=== PATIENT | female | born 1960 | race Two or more races ===

== ENCOUNTER 2017-06-23 19:31 | Emergency (ER) | payer OTHER, MEDICAID ==
[~2017-06-23] VITALS: Ht 162.6 cm; Wt 108.9 kg
[2017-06-23 20:50] LABS: Basophils # (auto) 0.1 uL; Eosinophils # (auto) 0.1 uL; Eosinophils % (auto) 1.3 % (0.0-7.0); Hemoglobin 12.4 g/dL (12.2-16.2)
[2017-06-23 20:52] LABS: Basophils % (auto) 0.9 % (0.0-2.0); Lymphocytes % (auto) 23.9 % (10.0-50.0); Mean Corpuscular Hemoglobin 24.7 pg (28.0-32.0); Mean Corpuscular Hgb Conc. 32.5 g/dL (32.0-36.0); Mean Corpuscular Volume 75.9 fL (80.0-100.0); Monocytes # (auto) 0.8 uL; Monocytes % (auto) 9.5 % (0.0-12.0); Neutrophils # (auto) 5.5 uL; Neutrophils % (auto) 64.4 % (37.0-80.0); Nucleated Red Blood Cells % 0.1 %; Platelet Count (auto) 426 10^3/uL (140-450); Red Blood Cells 5.01 10^6/uL (4.0-5.20); Red Cell Distribution Width 17.9 % (11.8-14.3); White Blood Cell 8.5 10^3/uL (4.4-10.8)
[2017-06-23 21:03] LABS: INR 0.95 (0.9-1.15); Partial Thromboplastin Time 25.7 sec (22.64-33.71); Prothrombin Time 10.3 sec (9.37-12.3)
[2017-06-23 21:23] LABS: Alanine Aminotransferase 19 U/L (13-56); Albumin 4.1 g/dL (3.4-5.0); Alkaline Phosphatase 110 U/L (45-117); Anion Gap 9 (5-15); Aspartate Aminotransferase 21 U/L (15-37); BUN/Creatinine Ratio 11.7; Bilirubin, Total 0.3 mg/dL (0.2-1.0); Blood Urea Nitrogen 11 mg/dL (7-18); Calcium 9.4 mg/dL (8.5-10.1); Carbon Dioxide 23 mmol/L (21-32); Chloride 105 mmol/L (98-107); GFR African American 80 mL/min; GFR Non-African American 66 mL/min; Glucose 121 mg/dL (74-106); Magnesium 2.5 mg/dL (1.6-2.6); Potassium 4.2 mmol/L (3.5-5.1); Sodium 137 mmol/L (136-145); Total Protein 8.6 g/dL (6.4-8.2)
[2017-06-24 00:49] VITALS: BP 133/89
== END 2017-06-24 01:12 | disposition home or self-care (01) ==
LOC: ER 19:31
DX: M54.42 Lumbago with sciatica, left side (principal); M62.838 Other muscle spasm; E11.9 Type 2 diabetes mellitus without complications; G89.29 Other chronic pain
CPT/HCPCS: 36415; 71045; 72131; 80053; 83735; 83880; 84443; 84484; 85025; 85379; 85610; 85730; 93005

== ENCOUNTER 2017-07-26 13:26 | Emergency (ER) | payer OTHER, MEDICAID ==
[~2017-07-26] VITALS: Ht 172.7 cm; Wt 95.3 kg
[2017-07-26 14:30] LABS: Basophils # (auto) 0 uL; Basophils % (auto) 0.9 % (0.0-2.0); Eosinophils # (auto) 0.2 uL; Hematocrit 35.5 % (36.0-46.0); Lymphocytes # (auto) 1.5 uL; Monocytes # (auto) 0.4 uL
[2017-07-26 14:32] LABS: Eosinophils % (auto) 3.7 % (0.0-7.0); Hemoglobin 11.6 g/dL (12.2-16.2); Lymphocytes % (auto) 33.2 % (10.0-50.0); Mean Corpuscular Hemoglobin 24.5 pg (28.0-32.0); Mean Corpuscular Hgb Conc. 32.7 g/dL (32.0-36.0); Mean Corpuscular Volume 74.9 fL (80.0-100.0); Monocytes % (auto) 9.1 % (0.0-12.0); Neutrophils # (auto) 2.4 uL; Neutrophils % (auto) 53.1 % (37.0-80.0); Platelet Count (auto) 341 10^3/uL (140-450); Red Blood Cells 4.74 10^6/uL (4.0-5.20); Red Cell Distribution Width 16.2 % (11.8-14.3); White Blood Cell 4.5 10^3/uL (4.4-10.8)
[2017-07-26 14:53] LABS: Alanine Aminotransferase 29 U/L (13-56); Albumin 3.4 g/dL (3.4-5.0); Alkaline Phosphatase 116 U/L (45-117); Anion Gap 7 (5-15); Aspartate Aminotransferase 21 U/L (15-37); BUN/Creatinine Ratio 12.5; Bilirubin, Total 0.2 mg/dL (0.2-1.0); Blood Urea Nitrogen 8 mg/dL (7-18); Calcium 8.4 mg/dL (8.5-10.1); Carbon Dioxide 23 mmol/L (21-32); Chloride 102 mmol/L (98-107); GFR African American 124 mL/min; GFR Non-African American 102 mL/min; Glucose 96 mg/dL (74-106); Magnesium 2.4 mg/dL (1.6-2.6); Potassium 4.3 mmol/L (3.5-5.1); Sodium 132 mmol/L (136-145); Total Protein 7.1 g/dL (6.4-8.2)
[2017-07-26 17:43] VITALS: BP 148/68
== END 2017-07-26 17:45 | disposition home or self-care (01) ==
LOC: EDBD 13:26 → ER 13:26
DX: G40.909 Epilepsy, unspecified, not intractable, without status epilepticus (principal); R42 Dizziness and giddiness; R53.1 Weakness; E11.9 Type 2 diabetes mellitus without complications; I10 Essential (primary) hypertension; R51 Headache; Z90.49 Acquired absence of other specified parts of digestive tract
CPT/HCPCS: 36415; 70450; 80053; 83735; 84484; 85025; 93005

== ENCOUNTER 2018-09-29 11:52 | Emergency (ER) | payer OTHER, MEDICAID ==
[~2018-09-29] VITALS: Ht 167.6 cm; Wt 99.3 kg
[2018-09-29 12:39] LABS: Basophils # (auto) 0.1 uL; Basophils % (auto) 0.8 % (0.0-2.0); Eosinophils # (auto) 0.1 uL; Mean Corpuscular Hemoglobin 25.9 pg (28.0-32.0); Mean Corpuscular Hgb Conc. 32.8 g/dL (32.0-36.0); Monocytes # (auto) 0.5 uL; White Blood Cell 6.8 10^3/uL (4.4-10.8)
[2018-09-29 12:41] LABS: Hemoglobin 11.1 g/dL (12.2-16.2); Lymphocytes # (auto) 1.1 uL; Lymphocytes % (auto) 16.9 % (10.0-50.0); Monocytes % (auto) 8.1 % (0.0-12.0); Neutrophils % (auto) 73.2 % (37.0-80.0); Platelet Count (auto) 284 10^3/uL (140-450); Red Cell Distribution Width 14.9 % (11.8-14.3)
[2018-09-29 13:02] LABS: Albumin 3.2 g/dL (3.4-5.0); Anion Gap 8 (5-15); Blood Urea Nitrogen 13 mg/dL (7-18); Carbon Dioxide 23 mmol/L (21-32); Chloride 108 mmol/L (98-107); Glucose 101 mg/dL (74-106); Potassium 4.4 mmol/L (3.5-5.1); Sodium 139 mmol/L (136-145)
[2018-09-29 13:07] LABS: Alanine Aminotransferase 87 U/L (13-56); Alkaline Phosphatase 120 U/L (45-117); Aspartate Aminotransferase 229 U/L (15-37); BUN/Creatinine Ratio 16.7; Bilirubin, Total 0.3 mg/dL (0.2-1.0); GFR African American 98 mL/min; GFR Non-African American 81 mL/min; Total Protein 6.7 g/dL (6.4-8.2)
[2018-09-29 18:02] VITALS: BP 119/77
== END 2018-09-29 14:47 | disposition home or self-care (01) ==
LOC: EDSEX 11:52 → EDBD 11:52 → ER 12:08
DX: K59.00 Constipation, unspecified (principal); J44.9 Chronic obstructive pulmonary disease, unspecified; E11.9 Type 2 diabetes mellitus without complications; I10 Essential (primary) hypertension; Z90.49 Acquired absence of other specified parts of digestive tract
CPT/HCPCS: 36415; 74176; 80053; 84484; 85025; 93005

== ENCOUNTER 2021-06-08 09:36 | Inpatient (IN) | payer OTHER, MEDICAID ==
[~2021-06-08] VITALS: Ht 165.1 cm; Wt 111.0 kg
[2021-06-08 10:33] LABS: Basophils # (auto) 0.1 10 ^3/uL (0-0.2); Basophils % (auto) 0.3 % (0.0-2.0); Eosinophils # (auto) 0 10 ^3/uL (0-0.8); Eosinophils % (auto) 0.1 % (0.0-7.0); Hemoglobin 13.2 g/dL (12.2-16.2); Lymphocytes # (auto) 1.6 10 ^3/uL (0.4-5.4)
[2021-06-08 10:35] LABS: Hematocrit 39.9 % (36.0-46.0); Mean Corpuscular Hemoglobin 25.7 pg (28.0-32.0); Monocytes # (auto) 1.2 10 ^3/uL (0-1.3); Monocytes % (auto) 7.6 % (0.0-12.0); Neutrophils # (auto) 13.1 10 ^3/uL (1.6-8.6); Red Blood Cells 5.12 10^6/uL (4.0-5.20); Red Cell Distribution Width 15.1 % (11.8-14.3)
[2021-06-08 10:38] LABS: Urine Bacteria FEW /hpf (None Seen); Urine Blood Negative /uL (Negative); Urine Mucus FEW (None Seen); Urine Specific Gravity 1.017 (1.001-1.035); Urine WBC 20 /hpf (0 - 5)
[2021-06-08 10:43] LABS: Albumin 3.2 g/dL (3.4-5.0); Potassium 3.6 mmol/L (3.5-5.1)
[2021-06-08 10:50] LABS: BUN/Creatinine Ratio 10.7; Bilirubin, Total 0.3 mg/dL (0.2-1.0); Total Protein 8.2 g/dL (6.4-8.2)
[2021-06-08] MEDS ORDERED: SODIUM CHLORIDE 0.9% 500 ML IVB ONE (13:30)
[2021-06-08] MEDS ORDERED: SODIUM CHLORIDE 0.9% 1,000 ML IV ONE (13:30)
[2021-06-08] MEDS ORDERED: IOHEXOL 300 MG/ML 100ML BOTTLE IJ ONE (14:01)
[2021-06-08 14:42] LABS: Magnesium 2.6 mg/dL (1.6-2.6)
[2021-06-08] MEDS ORDERED: cefTRIAXone 1GM/50ML D5W 50 ML IV ONE ×2 (15:00→20:30)
[2021-06-08] MEDS ORDERED: metroNIDAZOLE 500MG/100ML 100 ML IV ONE (15:30)
[2021-06-08] MEDS ORDERED: DEXTROSE (50%) 50ML SYRG IV PRN (15:45)
[2021-06-08] MEDS: SODIUM CHLORIDE 0.9% 1,000 ML IV SCH (16:39)
[2021-06-08 16:51] LABS: INR 1.05 (0.9-1.15); Partial Thromboplastin Time 31.5 sec (23.6-33.0)
[2021-06-08] MEDS: ACCU-CHEK COMFORT CURVE STRIP VI SCH (17:43)
[2021-06-08] MEDS: InsuLIN REG 1unit/0.01ml Soln (100units/ml) SC SCH (17:44)
[2021-06-08] MEDS ORDERED: BUPIVACAINE 0.25% INJ 50ML VIAL ONE (19:28)
[2021-06-08] MEDS ORDERED: SUCCINYLCHOLINE CHLORIDE 20 MG/ML 10ML VIAL IV ONE (20:00)
[2021-06-08] MEDS ORDERED: fentaNYL CITRATE 5 ML ONE (20:09)
[2021-06-08] MEDS ORDERED: MIDAZOLAM HCL 2MG/2ML 2ml VIAL (1mg/ml) ONE (20:09)
[2021-06-08] MEDS ORDERED: ROCURONIUM 10MG/ML 10ML VIAL IV ONE (20:09)
[2021-06-08] MEDS ORDERED: LIDOCAINE 2% (LOCAL ANESTH.) PF 5ml SDV ONE (20:11)
[2021-06-08] MEDS ORDERED: PROPOFOL 10 MG/ML 20 ML IV ONE (20:11)
[2021-06-08] MEDS ORDERED: ONDANSETRON HCL 4 MG/2 ML VIAL ONE (20:11)
[2021-06-08] MEDS ORDERED: HYDROmorphone HCL 2 MG/ML VL ONE (21:13)
[2021-06-08 22:00] VITALS: BP 95/65
[2021-06-08] MEDS ORDERED: NALOXONE HCL 0.4 MG/ML VIAL ONE (22:19)
[2021-06-08] MEDS: metroNIDAZOLE 500MG/100ML 100 ML IV SCH (23:25)
[2021-06-09] MEDS: ACCU-CHEK COMFORT CURVE STRIP VI SCH ×4 (00:44→17:54)
[2021-06-09] MEDS: InsuLIN REG 1unit/0.01ml Soln (100units/ml) SC SCH ×4 (00:44→17:59)
[2021-06-09] MEDS ORDERED: LORA10CA12 PO (02:07)
[2021-06-09] MEDS ORDERED: ALBU108A5 IN (02:07)
[2021-06-09] MEDS ORDERED: PARO1TAB33 PO (02:07)
[2021-06-09] MEDS ORDERED: TOPI50TA53 PO (02:07)
[2021-06-09] MEDS ORDERED: ALBUAER3 IN (02:07)
[2021-06-09] MEDS ORDERED: ASPI1TAB20 PO (02:07)
[2021-06-09] MEDS ORDERED: ESOM20CA70 PO (02:07)
[2021-06-09 05:00] VITALS: BP 114/66
[2021-06-09 06:01] LABS: Basophils # (auto) 0 10 ^3/uL (0-0.2); Eosinophils # (auto) 0 10 ^3/uL (0-0.8); Lymphocytes # (auto) 0.8 10 ^3/uL (0.4-5.4); Neutrophils % (auto) 88.1 % (37.0-80.0)
[2021-06-09 06:05] LABS: Basophils % (auto) 0.2 % (0.0-2.0); Hematocrit 35.7 % (36.0-46.0); Hemoglobin 11.6 g/dL (12.2-16.2); Mean Corpuscular Hemoglobin 25.5 pg (28.0-32.0); Mean Corpuscular Hgb Conc. 32.5 g/dL (32.0-36.0); Mean Corpuscular Volume 78.4 fL (80.0-100.0); Monocytes # (auto) 1.1 10 ^3/uL (0-1.3); Monocytes % (auto) 6.7 % (0.0-12.0); Neutrophils # (auto) 14.1 10 ^3/uL (1.6-8.6); Red Blood Cells 4.56 10^6/uL (4.0-5.20); Red Cell Distribution Width 15.4 % (11.8-14.3)
[2021-06-09] MEDS: metroNIDAZOLE 500MG/100ML 100 ML IV SCH ×3 (06:17→21:47)
[2021-06-09 06:41] LABS: Potassium 4.4 mmol/L (3.5-5.1)
[2021-06-09 06:49] LABS: Albumin 2.4 g/dL (3.4-5.0); BUN/Creatinine Ratio 11.5; Calcium 8.4 mg/dL (8.5-10.1)
[2021-06-09 06:52] LABS: Bilirubin, Total 0.3 mg/dL (0.2-1.0); Total Protein 6.4 g/dL (6.4-8.2)
[2021-06-09 08:00] VITALS: BP 109/67
[2021-06-09] MEDS: PANTOPRAZOLE 40 MG/10 ML VIAL INJ IV SCH (08:47)
[2021-06-09] MEDS: cefTRIAXone 1GM/50ML D5W 50 ML IV SCH (08:48)
[2021-06-09] MEDS: MORPHINE SULFATE 4 MG/ML SYR/VIAL IV PRN ×3 (09:00→17:55)
[2021-06-09] MEDS: SODIUM CHLORIDE 0.9% 1,000 ML IV SCH ×2 (13:53→17:53)
[2021-06-09 22:00] VITALS: BP 97/60
[2021-06-10] MEDS: SODIUM CHLORIDE 0.9% 1,000 ML IV SCH ×3 (00:03→17:00)
[2021-06-10] MEDS: ACCU-CHEK COMFORT CURVE STRIP VI SCH ×4 (00:03→18:12)
[2021-06-10 05:00] VITALS: BP 101/70
[2021-06-10] MEDS: InsuLIN REG 1unit/0.01ml Soln (100units/ml) SC SCH ×4 (05:54→18:00)
[2021-06-10] MEDS: metroNIDAZOLE 500MG/100ML 100 ML IV SCH ×3 (05:55→21:24)
[2021-06-10] MEDS: cefTRIAXone 1GM/50ML D5W 50 ML IV SCH (07:45)
[2021-06-10] MEDS: PANTOPRAZOLE 40 MG/10 ML VIAL INJ IV SCH (07:46)
[2021-06-10] MEDS: MORPHINE SULFATE 4 MG/ML SYR/VIAL IV PRN (07:48)
[2021-06-10 08:40] VITALS: BP 105/67
[2021-06-10 10:45] LABS: Basophils # (auto) 0 10 ^3/uL (0-0.2); Basophils % (auto) 0.2 % (0.0-2.0); Eosinophils # (auto) 0 10 ^3/uL (0-0.8); Eosinophils % (auto) 0.1 % (0.0-7.0); Neutrophils # (auto) 11.1 10 ^3/uL (1.6-8.6)
[2021-06-10 10:49] LABS: Hematocrit 31.4 % (36.0-46.0); Mean Corpuscular Hemoglobin 25.1 pg (28.0-32.0); Mean Corpuscular Volume 78.5 fL (80.0-100.0); Monocytes # (auto) 0.8 10 ^3/uL (0-1.3); Monocytes % (auto) 6.4 % (0.0-12.0); Neutrophils % (auto) 85.3 % (37.0-80.0); Red Cell Distribution Width 15.1 % (11.8-14.3)
[2021-06-10 12:30] VITALS: BP 105/60
[2021-06-10 16:45] VITALS: BP 118/70
[2021-06-10 22:00] VITALS: BP 99/52
[2021-06-11 05:00] VITALS: BP 115/68
[2021-06-11] MEDS: InsuLIN REG 1unit/0.01ml Soln (100units/ml) SC SCH ×4 (06:00→18:00)
[2021-06-11] MEDS: SODIUM CHLORIDE 0.9% 1,000 ML IV SCH ×3 (06:13→19:16)
[2021-06-11] MEDS: metroNIDAZOLE 500MG/100ML 100 ML IV SCH ×3 (06:26→22:00)
[2021-06-11] MEDS: ACCU-CHEK COMFORT CURVE STRIP VI SCH ×4 (06:27→19:13)
[2021-06-11 08:51] VITALS: BP 117/71
[2021-06-11] MEDS: PANTOPRAZOLE 40 MG/10 ML VIAL INJ IV SCH (09:56)
[2021-06-11] MEDS: cefTRIAXone 1GM/50ML D5W 50 ML IV SCH (09:57)
[2021-06-11 13:00] VITALS: BP 111/73
[2021-06-11] MEDS: ONDANSETRON HCL 4 MG/2 ML VIAL IV PRN (14:53)
[2021-06-11 16:39] VITALS: BP 115/75
[2021-06-11] MEDS: MORPHINE SULFATE 4 MG/ML SYR/VIAL IV PRN (19:13)
[2021-06-11 20:00] VITALS: BP 105/56
[2021-06-11 22:00] VITALS: BP 105/56
[2021-06-12] MEDS: SODIUM CHLORIDE 0.9% 1,000 ML IV SCH ×4 (01:00→18:01)
[2021-06-12 05:00] VITALS: BP 110/63
[2021-06-12] MEDS: InsuLIN REG 1unit/0.01ml Soln (100units/ml) SC SCH ×4 (06:00→17:17)
[2021-06-12] MEDS: metroNIDAZOLE 500MG/100ML 100 ML IV SCH ×3 (06:00→22:00)
[2021-06-12] MEDS: ACCU-CHEK COMFORT CURVE STRIP VI SCH ×4 (06:35→17:16)
[2021-06-12 09:00] VITALS: BP 133/71
[2021-06-12] MEDS: PANTOPRAZOLE 40 MG/10 ML VIAL INJ IV SCH (09:11)
[2021-06-12] MEDS: cefTRIAXone 1GM/50ML D5W 50 ML IV SCH (09:11)
[2021-06-12 13:00] VITALS: BP 121/83
[2021-06-12 16:41] VITALS: BP 92/47
[2021-06-12 20:00] VITALS: BP 134/72
[2021-06-13] MEDS: ACCU-CHEK COMFORT CURVE STRIP VI SCH ×4 (01:39→18:24)
[2021-06-13] MEDS: metroNIDAZOLE 500MG/100ML 100 ML IV SCH ×3 (05:09→22:00)
[2021-06-13] MEDS: InsuLIN REG 1unit/0.01ml Soln (100units/ml) SC SCH ×4 (05:16→18:00)
[2021-06-13 08:00] VITALS: BP 111/82
[2021-06-13 09:00] VITALS: BP_SYST 11; BP_SYST 111; BP_DIAS 82
[2021-06-13] MEDS: SODIUM CHLORIDE 0.9% 1,000 ML IV SCH ×2 (09:00→17:00)
[2021-06-13] MEDS: ONDANSETRON HCL 4 MG/2 ML VIAL IV PRN (09:18)
[2021-06-13] MEDS: PANTOPRAZOLE 40 MG/10 ML VIAL INJ IV SCH (09:18)
[2021-06-13] MEDS: cefTRIAXone 1GM/50ML D5W 50 ML IV SCH (09:18)
[2021-06-13] MEDS ORDERED: HYDR-4902 PO (10:27)
[2021-06-13] MEDS ORDERED: METR500T PO (10:27)
[2021-06-13] MEDS ORDERED: LEVO500T31 PO (10:27)
[2021-06-13 12:10] VITALS: BP 111/82
[2021-06-13 13:00] VITALS: BP 96/61
[2021-06-13 17:00] VITALS: BP 108/70
[2021-06-14] MEDS: SODIUM CHLORIDE 0.9% 1,000 ML IV SCH ×2 (01:01→10:16)
[2021-06-14 05:00] VITALS: BP 106/65
[2021-06-14] MEDS: metroNIDAZOLE 500MG/100ML 100 ML IV SCH ×2 (05:39→14:00)
[2021-06-14] MEDS: InsuLIN REG 1unit/0.01ml Soln (100units/ml) SC SCH ×3 (06:00→12:00)
[2021-06-14] MEDS: ACCU-CHEK COMFORT CURVE STRIP VI SCH ×3 (06:50→12:56)
[2021-06-14 09:00] VITALS: BP 98/41
[2021-06-14] MEDS: PANTOPRAZOLE 40 MG/10 ML VIAL INJ IV SCH (10:14)
[2021-06-14] MEDS: cefTRIAXone 1GM/50ML D5W 50 ML IV SCH (10:15)
[2021-06-14 13:00] VITALS: BP 100/52
== END 2021-06-14 18:00 | disposition home or self-care (01) | DRG 853 ==
LOC: ER 09:36 → CENTRAL 15:42
PROVIDERS: ADMIT Nurse Practitioner; ATTEND Family Medicine
PROC: 0WJG4ZZ Inspection of Peritoneal Cavity, Percutaneous Endoscopic Approach (ICD-10-PCS; 2021-06-08)
PROC: 0DNH0ZZ Release Cecum, Open Approach (ICD-10-PCS; 2021-06-08)
PROC: 0DTJ0ZZ Resection of Appendix, Open Approach (ICD-10-PCS; principal; 2021-06-08 20:02)
PROC: 0DBH0ZZ Excision of Cecum, Open Approach (ICD-10-PCS; 2021-06-08 20:02)
DX: A41.9 Sepsis, unspecified organism (principal); K35.33 Acute appendicitis with perforation, localized peritonitis, and gangrene, with abscess; N39.0 Urinary tract infection, site not specified; E46 Unspecified protein-calorie malnutrition; Z68.41 Body mass index [BMI] 40.0-44.9, adult; E66.01 Morbid (severe) obesity due to excess calories; K66.0 Peritoneal adhesions (postprocedural) (postinfection); I10 Essential (primary) hypertension; J44.9 Chronic obstructive pulmonary disease, unspecified; K76.0 Fatty (change of) liver, not elsewhere classified; R33.9 Retention of urine, unspecified; Z98.84 Bariatric surgery status; G40.909 Epilepsy, unspecified, not intractable, without status epilepticus; E11.9 Type 2 diabetes mellitus without complications; E86.0 Dehydration; Z90.49 Acquired absence of other specified parts of digestive tract; Z53.31 Laparoscopic surgical procedure converted to open procedure; Z20.822 Contact with and (suspected) exposure to COVID-19; Z79.84 Long term (current) use of oral hypoglycemic drugs
CPT/HCPCS: 36415; 71046; 74177; 80053; 81001; 82962; 83690; 83735; 84443; 85025; 85610; 85730; 86850; 86900; 86901; 87426; 93005; 96365; 96368; C9113; G0378; J0330; J0696; J1815; J2001; J2250; J2405; J2704; J3490

== ENCOUNTER 2025-03-08 14:24 | Inpatient (IN) | payer OTHER, MEDICAID ==
[~2025-03-08] VITALS: Ht 162.6 cm; Wt 94.3 kg
[~2025-03-08 14:24] MED LIST: ALBU108A5 IN; ALBUAER3 IN; ASPI1TAB20 PO; ESOM20CA70 PO; HYDR-4902 PO; LEVO500T31 PO; LORA10CA12 PO; METR500T PO; PARO1TAB33 PO; TOPI50TA53 PO
--- NOTE | 2025-03-08 15:20 | DVH ---
CHEST RADIOGRAPH Indication: CP Technique: Single frontal view of the chest was obtained Comparison: None FINDINGS: Lines and Tubes: None Lungs: No focal consolidation. Pleura: No effusion. No pneumothorax. Cardiomediastinal contours: Unremarkable Bones: No acute osseous abnormality. IMPRESSION: No acute cardiopulmonary disease.
[2025-03-08 15:26] LABS: Hemoglobin 11.0 g/dL (12.2-16.2); Mean Corpuscular Hemoglobin 22.0 pg (28.0-32.0)
[2025-03-08 15:27] LABS: Hematocrit 34.9 % (36.0-46.0); Mean Corpuscular Volume 69.7 fL (80.0-100.0); Nucleated Red Blood Cells % 0.1 %
--- NOTE | 2025-03-08 15:32 | ED.PDOC ---
HPI Comments This is a 64 year old female LEON presenting to the ED with chief complaint of chest pain. Patient reports that she has been experiencing left sided chest pain at night and with associated left arm pain and SOB for the past 2 nights. Patient relays that she had taken some Tylenol with relief noted after 15 min of waiting. Patient states that she had also suffered a recent syncopal episode at a park along with nausea and vomiting. Patient notes she visited her PCP today who called 911 due to patient's EKG showing sinus bradycardia in the office. Patient denies any numbness, dizziness, cough, fever, headache, or fall. Chief Complaint: Chest Pain Time Seen by MD: 15:29 Primary Care Provider: NONE Reviewed Notes: Nurses Notes, Lymphedema Therapist Notes, Medications, Allergies Allergies: Coded Allergies: NO KNOWN ALLERGIES (Unverified , 07/26/17) Home Meds Active Scripts Hydrocodone-Acetaminophen (Hydrocodone Bitartrate/AC 5-325 mg) 1 Tab Tab, 1 TAB PO Q6HR PRN, #30 TAB Prov:SNEHAL DENISE MD 06/13/21 Levofloxacin (Levaquin) 500 Mg Tab, 500 MG PO DAILY, #10 TAB Prov:SNEHAL DENISE MD 06/13/21 Metronidazole (Flagyl) 500 Mg Tab, 500 MG PO TID, #30 TAB Prov:SNEHAL DENISE MD 06/13/21 Reported Medications Albuterol Sulfate (VENTOLIN MDI) 90 Mcg Ih, 90 MCG IN Q6HP PRN for SHORTNESS OF BREATH for 30 Days, MCG 06/09/21 Albuterol Sulfate (Albuterol Sulfate Hfa) 108 Mcg/Act Aer, 108 MCG IN, AER 06/09/21 Aspirin (Aspir-81) 81 Mg Tab, 1 TAB PO DAILY, #30 TAB 5 Refills 06/09/21 Loratadine (Loratadine) 10 Mg Cap, 10 MG PO, CAP 06/09/21 Topiramate (Topiramate) 50 Mg Tab, 50 MG PO, TAB 06/09/21 Paroxetine Hydrochloride (Paroxetine Hydrochloride) 20 Mg Tab, 1 TAB PO DAILYPRN 06/09/21 Esomeprazole Magnesium (Esomeprazole Magnesium Dr) 20 Mg Cap, 1 CAP PO DAILYPRN 06/09/21 Information Source: Patient, Emergency Med Personnel Mode of Arrival: EMS Severity: Moderate Timing: Days Duration: Since onset Prehospital treatment: None Location: Chest (L) Quality: Sharp Onset: At Rest Cardiac Risk Factors: HTN PE Risk Factors: None History of: None Past Medical History PAST MEDICAL HISTORY: Asthma, COPD, DM, Gallstones, HTN, Seizures Surgical History: Cholecystectomy ASSISTANT FINANCE DIRECTOR History: Denies all ASSISTANT FINANCE DIRECTOR Hx Family History Family History: Reviewed,noncontributory to illness Social History Smoker: Non-Smoker Alcohol: Denies ETOH Use Drugs: Denies Drug Use Lives In: Home Constitutional: denies: chills, diaphoresis, fatigue, fever, malaise, sweats, weakness, others EENTM: denies: blurred vision, double vision, ear bleeding, ear discharge, ear drainage, ear pain, ear ringing, eye pain, eye redness, hearing loss, mouth pain, mouth swelling, nasal discharge, nose bleeding, nose congestion, nose pain, photophobia, tearing, throat pain, throat swelling, voice changes, others Respiratory: reports: shortness of breath; denies: cough, hemoptysis, orthopnea, SOB at rest, SOB with excertion, stridor, wheezing, others Cardiovascular: reports: chest pain, syncope; denies: dizzy spells, diapho resis, Dyspnea on exertion, edema, irregular heart beat, left arm pain, lightheadedness, palpitations, PND, others Gastrointestinal: denies: abdomen distended, abdominal pain, blood streaked bowels, constipated, diarrhea, dysphagia, difficulty swallowing, hematemesis, melena, nausea, poor appetite, poor fluid intake, rectal bleeding, rectal pain, vomiting, others Genitourinary: denies: abnormal vagina bleeding, burning, dyspareunia, dysuria, flank pain, frequency, hematuria, incontinence, pain, , vagina discharge, urgency, others Neurological: denies: dizziness, fainting, headache, left sided numbness, left sided weakness, numbness, paresthesia, pre-existing deficit, right sided numbne ss, right sided weakness, seizure, speech problems, tingling, tremors, weakness, others Musculoskeletal: denies: back pain, gout, joint pain, joint swelling, muscle pain, muscle stiffness, neck pain, others Integumetry: denies: bruises, change in color, change in hair/nails, dryness, laceration, lesions, lumps, rash, wounds, others Allergic/Immunocompromised: denies: Difficulty Healing, Frequent Infections, Hives, Itching, others Hematologic/Lymphatic: denies: anemia, blood clots, easy bleeding, easy bruising, swollen glands, others Endocrine: denies: excessive hunger, excessive sweating, excessive thirst, excessive urination, flushing, intolerance to cold, intolerance to heat, unexplained weight gain, unexplained weight loss, others Psychiatric: denies: anxiety, bipolar disorder, depression, hopeless, panic disorder, schizophrenia, sleepless, suicidal, others All Other Systems: Reviewed and Negative Physical Exam General Appearance: Moderate Distress HEENT: Normal ENT Inspection, Pharynx Normal, TMs Normal Neck: Full Range of Motion, Non-Tender, Normal, Normal Inspection Respiratory: Chest Non-Tender, Lungs Clear, No Accessory Muscle Use, No Respiratory Distress, Normal Breath Sounds Cardiovascular: No Edema, No JVD, No Murmur, No Gallop, Normal Peripheral Pulses, Regular Rate/Rhythm Breast Exam: Deferred Gastrointestinal: No Organomegaly, Non Tender, No Pulsatile Mass, Normal Bowel Sounds, Soft Genitalia: Deferred Pelvic: Deferred Rectal: Deferred Extremities: No calf tenderness, Normal capillary refill, No pedal edema Musculoskeletal : Apperance: Normal Neurologic: Alert, music therapy teacher II-XII nml as Tested, Motor Weakness, Normal Affect, Normal Mood, No Sensory Deficits Cerebellar Function: Normal Reflexes: Normal Skin: Dry, Normal Color, Warm Lymphatic: No Adenopathy EKG EKG : Pulse Rate (adult): 52 [place]: Normal Cardiac Rhythm: SB Block: None Hypertrophy: None ST: Normal Was a procedure done? Was a procedure done?: No CP Differential Dx Differential Diagnosis: Angina, [place], Pulmonary Embolus Differential Diagnosis: CHF Differential Diagnosis: Pericarditis X-Ray, Labs, Meds, VS Vital Signs Date Time Temp Pulse Resp B/P (MAP) Pulse Ox O2 Delivery O2 Flow Rate FiO2 03/08/25 15:32 52 03/08/25 14:42 52 Lab Test 03/08/25 15:09 Range/Units White Blood Count 6.6 4.4-10.8 10^3/uL Red Blood Count 5.00 4.0-5.20 10^6/uL Hemoglobin 11.0 L 12.2-16.2 g/dL Hematocrit 34.9 L 36.0-46.0 % Mean Corpuscular Volume 69.7 L 80.0-100.0 fL Mean Corpuscular Hemoglobin 22.0 L 28.0-32.0 pg Mean Corpuscular Hemoglobin Concent 31.6 L 32.0-36.0 g/dL Red Cell Distribution Width 17.6 H 11.8-14.3 % Platelet Count 420 140-450 10^3/uL Mean Platelet Volume 6.8 L 6.9-10.8 fL Neutrophils (%) (Auto) 53.4 37.0-80.0 % Lymphocytes (%) (Auto) 36.1 10.0-50.0 % Monocytes (%) (Auto) 7.9 0.0-12.0 % Eosinophils (%) (Auto) 1.6 0.0-7.0 % Basophils (%) (Auto) 1.0 0.0-2.0 % Neutrophils # (Auto) 3.5 1.6-8.6 10 ^3/uL Lymphocytes # (Auto) 2.4 0.4-5.4 10 ^3/uL Monocytes # (Auto) 0.5 0-1.3 10 ^3/uL Eosinophils # (Auto) 0.1 0-0.8 10 ^3/uL Basophils # (Auto) 0.1 0-0.2 10 ^3/uL Nucleated Red Blood Cells 0.1 % Sodium Level 143 136-145 mmol/L Potassium Level 4.5 3.5-5.1 mmol/L Chloride Level 109 H 98-107 mmol/L Carbon Dioxide Level 25 20-31 mmol/L Anion Gap 9 5-15 Blood Urea Nitrogen < 5 L 9-23 mg/dL Creatinine 0.84 0.550-1.02 mg/dL Glomerular Filtration Rate Calc 79 >90 mL/min BUN/Creatinine Ratio 6.0 L 10.0-20.0 Serum Glucose 112 H 74-106 mg/dL Calcium Level 9.3 8.7-10.4 mg/dL Troponin I High Sensitivity < 3 L </=34 ng/L IV Hep-Lock was established The CBC shows anemia with a hemoglobin of 11 and hematocrit of 34.9 The chemistry panel is within normal limits The troponin level is negative At this time, the patient has a chest x-ray which shows: No sign of any abnormalities The patient was given aspirin for the chest pain The patient is being admitted at this time Images Reviewed?: Images reviewed and evaluated by me Time of 1ST Reevaluation: 15:47 Reevaluation 1ST: Unchanged Patient Education/Counseling: Diagnosis, Treatment, Prognosis Family Education/Counseling: No Family Present SEPSIS Sepsis Screen Physician Orders Chest Portable (03/08/25 14:42) Urinalysis (03/08/25 14:42) Electrocardigram (03/08/25 14:42) Troponin-I Hs (03/08/25 15:42) Troponin-I Hs (03/08/25 17:42) Electrocardigram (03/08/25 15:42) Electrocardigram (03/08/25 17:42) Heplock Iv (03/08/25 ) Vital Signs Date Time Temp Pulse Resp B/P (MAP) Pulse Ox O2 Delivery O2 Flow Rate FiO2 03/08/25 15:32 52 03/08/25 14:42 52 Laboratory Tests Test 03/08/25 15:09 White Blood Count 6.6 10^3/uL (4.4-10.8) Departure 1 Departure Time of Disposition: 15:47 Impression: Primary Impression: Acute myocardial ischemia Disposition: 09 ADMITTED INPATIENT Admit to: Tele Condition: Fair Critical Care Note Critical Care Time?: Yes (45 min-critical care time only) Stability Stability form required: Yes Unstable for transfer: Telemetry monitoring (Telemetry monitoring required), ED Physician Assesment (Clinical assesment) Heart Score Heart Score: Heart Score Response (Comments) Value History Highly Suspicious 2 EKG Normal 0 Age 45-64 1 Risk Factors >3 or Hx ASHD 2 Troponin Normal limit 0 Total 5 I personally scribed for KORIN VINES MD ([email or web address]) on 03/08/25 at 15:32. Electronically submitted by Mark Balbuena ([email or web address]). KORIN VINES MD Mar 08, 2025 15:32
[2025-03-08 15:35] LABS: Potassium 4.5 mmol/L (3.5-5.1); Sodium 143 mmol/L (136-145)
[2025-03-08 15:36] LABS: Anion Gap 9 (5-15); Carbon Dioxide 25 mmol/L (20-31)
[2025-03-08 15:37] LABS: Calcium 9.3 mg/dL (8.7-10.4); Chloride 109 mmol/L (98-107)
[2025-03-08 15:42] LABS: BUN/Creatinine Ratio 6.0 (10.0-20.0); Blood Urea Nitrogen < 5 mg/dL (9-23); Glucose 112 mg/dL (74-106)
[2025-03-08] MEDS: SODIUM CHLORIDE 0.9% 1,000 ML IV SCH (17:15)
[2025-03-08] MEDS ORDERED: ACETAMINOPHEN 325 MG TAB PO PRN (17:15)
[2025-03-08] MEDS ORDERED: NITROGLYCERIN 0.4 MG SL TAB SL PRN (17:15)
[2025-03-08] MEDS ORDERED: MORPHINE SULFATE INJ 2 MG/ml SYRG IV PRN (17:15)
[2025-03-08] MEDS ORDERED: DOCUSATE SOD 100 MG CAP PO PRN (17:15)
[2025-03-08] MEDS ORDERED: TEMAZEPAM 15 MG CAP PO PRN (17:15)
[2025-03-08] MEDS ORDERED: ENOXAPARIN SOD 40 MG/0.4 ML SYRINGE SC SCH (17:15)
[2025-03-08] MEDS ORDERED: ONDANSETRON HCL 4 MG/2 ML VIAL IV PRN (17:15)
--- NOTE | 2025-03-08 18:01 | DVHHPRES ---
History of Present Illness Resident Creating Document: AGUSTIN JACKSON RESIDENT History of Present Illness TONE ASHBY, A 64-year-old female was brought in by ambulance with a chief complaint of chest pain. She reports experiencing left-sided chest pain at night for the past two nights, associated with left arm pain and shortness of breath. Symptoms improved after taking Tylenol with relief noted within 15 minutes. She also describes a recent syncopal episode at a park accompanied by nausea and vomiting. Earlier today, her PCP called 911 after an office EKG showed sinus bradycardia. She denies numbness, dizziness, cough, fever, headache, or falls. Past medical history includes asthma, COPD, diabetes, gallstones, hypertension, and seizures; surgical history includes cholecystectomy. Denies any gynecologic history. Past medical History: Asthma, COPD, DM, Gallstones, HTN, Seizure disorder. Surgical History: Cholecystectomy, Acute appendicitis status post appendectomy GENERAL INTERNAL MEDICINE DOCTOR History: Denies all GENERAL INTERNAL MEDICINE DOCTOR Hx, postmenopausal. Family History: Reviewed,noncontributory to illness Social History: Non-smoker, denies alcohol and drug use, lives by herself at a [facility]. Review of Systems Constitutional: No: Fever, Chills, Sweats, Weakness, Malaise, Other Eyes: No: Pain, Vision change, Conjunctivae inflammation, Eyelid inflammation, Other, Redness ENT: No: Ear pain, Ear discharge, Nose pain, Nose discharge, Nose congestion, Mouth pain, Mouth swelling, Throat pain, Throat swelling, Other Respiratory: No: Cough, Dry, Shortness of breath, SOB with excertion, Wheezing, Hemoptysis, Pleuritic Pain, Sputum, Wheezing, Other Cardiovascular: Chest Pain, Lt Headedness; No: Palpitations, Orthopnea, Paroxysmal Noc. Dyspnea, Edema, Other Gastrointestinal: No: Nausea, Vomiting, Abdominal Pain, Diarrhea, Constipation, Melena, Hematochezia, Other Genitourinary: No Dysuria; Frequency; No Incontinence, No Hematuria, No Retention, No Other Musculoskeletal: No: other, neck pain, shoulder pain, arm pain, back pain, hand pain, leg pain, foot pain Skin: No: Rash, Lesions, Jaundice, Bruising, Other Neurological: Weakness, Seizures, Other (fall x 4 times at least. ); No: Numbness, Incoordination, Change in speech, Confusion Allergies: Coded Allergies: NO KNOWN ALLERGIES (Unverified , 07/26/17) Medications Current Medications Medications Dose Ordered Sig/Ilene Route Start Time Stop Time Status Last Admin Dose Admin Sodium Chloride 1,000 ml @ 120 mls/hr Q8H20M IV 03/08/25 17:15 Temazepam 15 mg QHSP PRN PO 03/08/25 17:15 Ondansetron HCl 4 mg Q4HP PRN IV 03/08/25 17:15 Docusate Sodium 100 mg BIDPRN PRN PO 03/08/25 17:15 Acetaminophen 650 mg Q6HP PRN PO 03/08/25 17:15 Morphine Sulfate 2 mg Q4HPRN PRN IV 03/08/25 17:15 Enoxaparin Sodium 40 mg DAILY SC 03/08/25 17:15 03/24/25 23:59 Nitroglycerin 0.4 mg Q5MINP PRN SL 03/08/25 17:15 Morphine Sulfate 2 mg Q30M PRN IV 03/08/25 17:15 Exam Vital Signs Vital Signs Date Time Temp Pulse Resp B/P (MAP) Pulse Ox O2 Delivery O2 Flow Rate FiO2 03/08/25 15:39 51 03/08/25 15:13 98.4 16 133/78 100 98.4 General Appearance: Alert, Oriented X3, Cooperative, No acute distress HEENT: Atraumatic, PERRLA, EOMI, Mucous membr. moist/pink, Other (pallor b/l) Respiratory: Clear to auscultation, Normal air movement, Other (in room air. ) Cardiovascular: Regular rate, Normal S1, Normal S2, No murmurs, Gallops, Rubs, Other (no reproducible chest pain. ) Abdominal: Normal bowel sounds, Soft, No hepatospenomegaly, No masses, Other (suprapubic tenderness, healthy surgical scars. epigastric deep palpation tender. ) Extremities: No clubbing, No cyanosis, No edema, Normal pulses, No tenderness/swelling Skin: No rashes, No breakdown, No significant lesion Neuro: Normal gait, Normal speech, Strength at 5/5 X4 ext, Normal tone, Sensation intact, Cranial nerves 3-12 NL, Reflexes 2+ Psych/Mental Status: Mental status NL, Mood NL, Other Labs/Xrays Labs Test 03/08/25 15:54 03/08/25 15:09 Range/Units Troponin I High Sensitivity < 3 L </=34 ng/L White Blood Count 6.6 4.4-10.8 10^3/uL Red Blood Count 5.00 4.0-5.20 10^6/uL Hemoglobin 11.0 L 12.2-16.2 g/dL Hematocrit 34.9 L 36.0-46.0 % Mean Corpuscular Volume 69.7 L 80.0-100.0 fL Mean Corpuscular Hemoglobin 22.0 L 28.0-32.0 pg Mean Corpuscular Hemoglobin Concent 31.6 L 32.0-36.0 g/dL Red Cell Distribution Width 17.6 H 11.8-14.3 % Platelet Count 420 140-450 10^3/uL Mean Platelet Volume 6.8 L 6.9-10.8 fL Neutrophils (%) (Auto) 53.4 37.0-80.0 % Lymphocytes (%) (Auto) 36.1 10.0-50.0 % Monocytes (%) (Auto) 7.9 0.0-12.0 % Eosinophils (%) (Auto) 1.6 0.0-7.0 % Basophils (%) (Auto) 1.0 0.0-2.0 % Neutrophils # (Auto) 3.5 1.6-8.6 10 ^3/uL Lymphocytes # (Auto) 2.4 0.4-5.4 10 ^3/uL Monocytes # (Auto) 0.5 0-1.3 10 ^3/uL Eosinophils # (Auto) 0.1 0-0.8 10 ^3/uL Basophils # (Auto) 0.1 0-0.2 10 ^3/uL Nucleated Red Blood Cells 0.1 % Sodium Level 143 136-145 mmol/L Potassium Level 4.5 3.5-5.1 mmol/L Chloride Level 109 H 98-107 mmol/L Carbon Dioxide Level 25 20-31 mmol/L Anion Gap 9 5-15 Blood Urea Nitrogen < 5 L 9-23 mg/dL Creatinine 0.84 0.550-1.02 mg/dL Glomerular Filtration Rate Calc 79 >90 mL/min BUN/Creatinine Ratio 6.0 L 10.0-20.0 Serum Glucose 112 H 74-106 mg/dL Calcium Level 9.3 8.7-10.4 mg/dL SEPSIS Sepsis Screen Date sepsis recognized/suspect: Mar 08, 2025 Time Sepsis recognized/suspect: 0 Recent Procedure: No On Antibiotic Therapy: No Respiratory Rate >20: No Heart Rate >90: No Temp<36 C (96.8 F) or >38.3 C: No SBP <90 or MAP <65 mmHG: No New Acute Mental Status Change: No Is the patient on CPAP, BIPAP,: No Physician Orders Chest Portable (03/08/25 14:42) Urinalysis (03/08/25 14:42) Electrocardigram (03/08/25 14:42) Electrocardigram (03/08/25 15:42) Electrocardigram (03/08/25 17:42) Heplock Iv (03/08/25 ) Admit (03/08/25 17:08) Allergies (03/08/25 17:08) Code Status (03/08/25 17:08) Sodium Chloride 0.9% (03/08/25 17:15) Oxygen Per Hour (03/08/25 17:08) Temazepam (Restoril) (03/08/25 17:15) Ondansetron Hcl (Zofran) (03/08/25 17:15) Docusate Sodium Capsule (Colace Capsule) (03/08/25 17:15) Complete Blood Count (03/09/25 04:00) Comprehensive Metabolic Panel (03/09/25 04:00) Cardiac Diet-2gna,Lofat,Lochol (03/08/25 Dinner) Echo 2d Mode Cardiac Dop (03/08/25 17:08) Condition: Serious (03/08/25 17:08) Acetaminophen Tablet (Tylenol Tablet) (03/08/25 17:15) Bedrest With Bathroom Privileg (03/08/25 17:08) Morphine Sulfate Injection (03/08/25 17:15) Enoxaparin Sodium (Lovenox) (03/08/25 17:15) Nitroglycerin Sublingual (Ntrostat Subli (03/08/25 17:15) Morphine Sulfate Injection (03/08/25 17:15) Oxygen By Nasal Cannula (03/08/25 17:08) Stat Ekg For Chest Pain (03/08/25 17:08) Notify Md Of Changes From Base (11/13/25 17:08) Wedger Machine For 24 Hours (03/08/25 17:08) Emergency Dysrhythmia Protocol (03/08/25 17:08) Rhythm Strips Once Every Shift (03/08/25 17:08) Vital Signs Date Time Temp Pulse Resp B/P (MAP) Pulse Ox O2 Delivery O2 Flow Rate FiO2 03/08/25 15:39 51 03/08/25 15:32 52 03/08/25 15:13 98.4 60 16 133/78 100 98.4 03/08/25 14:42 52 Laboratory Tests Test 03/08/25 15:09 White Blood Count 6.6 10^3/uL (4.4-10.8) Assessment/Plan Assessment/Plan # Unstable angina, recurrent: Patient wakes up for past few weeks with acute substernal chest pain that goes to left neck and left arm, pressure-like, unpredictable and did not subside with a any pain medication. ruled out toxicology. Echo pending, troponin and EKG rules out STEMI/NSTEMI. Likely will need stress test / diagnostic workup for unstable angina, consult cardiology if still suspicion for cardiac chest pain remains high. # recurrent syncopal episodes: In recent times patient has for syncopal episode where patient finds herself falling down, bystanders did not notice any seizure activities and patient denies any significant injuries. Check orthostatic vitals, carotid Doppler, echo, B12, folate, patient used to have came but now lost it. PT and sw consult as needed for need of rehab/ specific DME # chronic hypochromic microcytic anemia: Baseline 10-11 of hemoglobin, H&H stable, no active bleeding reported, check stool occult blood, iron ferritin panel # prior history of type 2 diabetes mellitus: HbA1c 6.1 prediabetes , lifestyle modification, no need of insulin in-hospital # severe iron-deficiency anemia, ferritin 5.7: Likely poor nutrition, absorption, loss: IV iron to continue, we will discharge the patient home with oral iron with high vitamin-C. # Grade 1 obesity: 34.8 BMI, weight loss, lifestyle modifications, counseling done. # History of asthma / COPD: No recent exacerbation, not on home oxygen, baseline in room air, as needed breathing treatment, ruled out viral infection as patient is from [facility], as needed albuterol to continue # Hypertension , well-controlled: At home lisinopril 5 mg daily, we will review the further need given well-controlled hypertension. Target blood pressure 140/90 or below, cardiac diet, medications to continue # anxiety/ depression with insomnia: Paroxetine 20 mg home dose started, temaze felecia as needed. # recurrent constipation: Dietary modification, high-fiber diet, docusate as needed to continue, abdominal examination unremarkable. # Known seizure disorder: Seizure precautions, sleep-wake cycle to continue, seizure precautions, fall and aspiration precautions, topiramate mg p.o. b.i.d. home dose started, no recent seizure noted, as needed lorazepam for seizure management. # [id number] Osteoarthritis: Given anemia, avoid NSAIDs and aspirated, Tylenol as needed # mild bradycardia mostly in 50s, symptomatic ( as recent several syncopal episodes): we will keep the patient telemetry, TSH to check, the for sinus pauses, echo, evaluate need of pacing /permanent pacemaker placement. cardiac causes of syncope to rule out prior to discharge. # fatty liver/ hepatic steatosis: lifestyle modifications, weight loss, CMP panel to check. # GERD/hiatal hernia: Previously noted in CT scan, at home esomeprazole 20 mg daily, we will continue on pantoprazole in-hospital. # acute complicated cystitis: Nonspecific frequent micturition , urinalysis positive, at [facility], urine culture, IV ceftriaxone to continue no prior history of ESWL # allergy/atopy: loratadine 10 mg nighttime daily as needed. # Prior history of PARISA, was on CPAP: compliance issues, does not use it anymore, encouraged. CPAP as per RT. # Medical nonadherence, prior, counseling for adherence PUD prophylaxis: protonix 40mg DVT prophylaxis: SCD/brisk movement. Barriers to discharge: Medical diagnosis and management in progress. Patient lives in [facility] locally. Need supportive device/person support for ADL. PT and SW consulted. Pending evaluation. PCP: Dr. Cameron Murray Specialist Relevant To Admission: Cardiology, if needed. Case discussed with Dr. Villa. Code Status: Full Code. Discussion needed total 29 minutes bedside. Plan discussed with: Patient, Other (primary team [place] BOWDEN. ) My Orders Orders - AGUSTIN JACKSON RESIDENT Procedure Category Date Status Time Admit ADMIT 03/08/25 Transmitted 17:08 Allergies MOI 03/08/25 In Process 17:08 Code Status CODE 03/08/25 Transmitted 17:08 Sodium Chloride 0.9% PHA 03/08/25 In Process 17:15 Oxygen Per Hour RT 03/08/25 Transmitted 17:08 Temazepam (Restoril) PHA 03/08/25 In Process 17:15 Ondansetron Hcl PHA 03/08/25 In Process (Zofran) 17:15 Docusate Sodium PHA 03/08/25 In Process Capsule (Colace 17:15 Complete Blood Count LAB 03/09/25 Verified 04:00 Comprehensive LAB 03/09/25 Verified Metabolic Panel 04:00 Cardiac DIET 03/08/25 Transmitted Diet-2gna,Lofat,Lochol Dinner Echo 2d Mode Cardiac US 03/08/25 Logged DOP 17:08 Condition: Serious MOI 03/08/25 In Process 17:08 Acetaminophen Tablet PHA 03/08/25 In Process (Tylenol Tablet) 17:15 Bedrest With Bathroom MOI 03/08/25 In Process Privileg 17:08 Morphine Sulfate PHA 03/08/25 In Process Injection 17:15 Enoxaparin Sodium PHA 03/08/25 In Process (Lovenox) 17:15 Nitroglycerin PHA 03/08/25 In Process Sublingual (Ntrostat 17:15 Morphine Sulfate PHA 03/08/25 In Process Injection 17:15 Oxygen By Nasal RT 03/08/25 Transmitted Cannula 17:08 Stat Ekg For Chest MOI 03/08/25 In Process Pain 17:08 Notify Of Changes MOI 03/08/25 In Process From Base 17:08 Wedger Machine For [facility] 03/08/25 In Process 24 Hours 17:08 Emergency Dysrhythmia MOI 03/08/25 In Process Protocol 17:08 Rhythm Strips Once MOI 03/08/25 In Process Every Shift 17:08 Date of Service: Mar 08, 2025 Billing Provider: JOSESITO VILLA MD Common Visit Codes: 66256-MMNTGPA INP/OBS CARE (HIGH) Secondary Visit Codes: [id number] CARE PLAN 30 MINUTES AGUSTIN JACKSON RESIDENT Mar 08, 2025 18:01
[2025-03-08] MEDS ORDERED: LORazepam 2MG/ML-1ML VIAL IV PRN (19:15)
[2025-03-08] MEDS ORDERED: ALBUTEROL SULF 2.5 MG/0.5ML(0.5%) NEB SOLN NEB PRN (19:15)
[2025-03-08 19:21] VITALS: PULSE 60; RESP 18; O2SAT 100
--- NOTE | 2025-03-08 19:30 | ECG ---
[facility] Test Date: 2025-03-08 Test Time: 17:54:09 Pat Name: TONE ASHBY Department: ED Room: [address] [place] [address] Gender: F Occupational Therapist Rehab Manager: LEONA : 1960 Requested By: AGUSTIN JACKSON Order Number: [id number] Reading MD: Bony Sandoval Measurements Intervals [place] Rate: 55 P: 50 MT: 171 QRS: 61 QRSD: 82 T: 59 QT: 438 QTc: 419 Interpretive Statements Sinus rhythm Electronically Signed On 03-09-2025 15:46:48 PST by Bony Sandoval Please click the below link to view image of tracing.
[2025-03-08 19:43] LABS: Iron 24.0 ug/dL (50-170)
[2025-03-08 19:44] LABS: Total Iron Binding Capacity 382.0 ug/dL (250-425)
[2025-03-08 19:54] VITALS: O2SAT 99
--- NOTE | 2025-03-08 20:06 | DVH ---
ULTRASOUND CAROTID DUPLEX BILATERAL REASON FOR EXAM: rule out carotid stenosis COMPARISON: None TECHNIQUE: Using real-time freeze-frame technique with a high-frequency small parts transducer, multiple longitudinal and transverse sections were obtained. Simultaneous color flow Doppler imaging was performed. FINDINGS: There is mild calcified plaque at the proximal left internal carotid artery. Waveforms are normal. Flow is laminar throughout. Flow through the vertebral and external carotid arteries is antegrade bilaterally. PEAK SYSTOLIC VELOCITIES (cm/sec): RIGHT: CCA 49 Proximal ICA 66 Mid ICA 100 Distal ICA 89 ECA 53 ICA/CCA ratio 2.0 LEFT: CCA 72 Proximal ICA 128 Mid ICA 98 Distal ICA 104 ECA 38 ICA/CCA ratio 1.8 IMPRESSION: Mild atherosclerotic disease in the proximal left internal carotid artery with estimated luminal narrowing of 50-69%. Measurement of carotid stenosis is based on velocity parameters that correlate the residual internal carotid diameter with that of the more distal vessel in accordance with the [place] Symptomatic Carotid Endarterectomy Trial (NASCET).
[2025-03-08 20:32] VITALS: BP 133/98; PULSE 56; RESP 16
[2025-03-08 21:20] LABS: COVID19 ANTIGEN SOFIA FIA NEGATIVE (NEGATIVE)
[2025-03-08 22:14] LABS: Urine Protein, UAD Negative (Negative)
[2025-03-08] MEDS: LORATADINE 10 MG TAB PO SCH (22:14)
[2025-03-08] MEDS: TOPIRAMATE 25 MG TAB PO SCH (22:15)
[2025-03-08 22:17] LABS: Amphetamine Screen, Urine Neg (NEGATIVE); Barbiturate Scree,Urine Neg (NEGATIVE); Benzodiazephine Screen, Urine Neg (NEGATIVE)
[2025-03-08 22:18] LABS: Cannabinoid Screen, Urine Neg (NEGATIVE); Cocaine Screen, Urine Neg (NEGATIVE); Opiate Scree,Urine Neg (NEGATIVE); Phencyclidine Screen, Urine Neg (NEGATIVE)
[2025-03-09] VITALS (13 sets, daily range): BP systolic 100–122; BP diastolic 48–86; PULSE 57–73; RESP 14–18; TEMP 97.9–98.8; O2SAT 96–100
[2025-03-09] MEDS ORDERED: PNEUMOCOCCAL VACC POLYS 25 MCG/0.5 ML VIAL IM ONE (01:45)
[2025-03-09 04:41] LABS: Hemoglobin 9.8 g/dL (12.2-16.2); Mean Corpuscular Hemoglobin 22.3 pg (28.0-32.0); Nucleated Red Blood Cells % 0.1 %
[2025-03-09 04:45] LABS: Hematocrit 31.0 % (36.0-46.0); Mean Corpuscular Volume 70.7 fL (80.0-100.0)
[2025-03-09 04:54] LABS: Alanine Aminotransferase 15 U/L (7-40); Alkaline Phosphatase 95 U/L (46-116); Anion Gap 8 (5-15); BUN/Creatinine Ratio 8.4 (10.0-20.0); Calcium 8.8 mg/dL (8.7-10.4); Carbon Dioxide 23 mmol/L (20-31); Potassium 4.2 mmol/L (3.5-5.1); Sodium 143 mmol/L (136-145); Total Protein 6.6 g/dL (5.7-8.2); Triglycerides 54 mg/dL (< 150)
[2025-03-09 04:55] LABS: Albumin 3.9 g/dL (3.2-4.8); Cholesterol 154 mg/dL (< 200)
[2025-03-09 05:09] LABS: Bilirubin, Total 0.3 mg/dL (0.2-1.0); Blood Urea Nitrogen 7 mg/dL (9-23); Chloride 112 mmol/L (98-107); Glucose 114 mg/dL (74-106); HDL Cholesterol 65 mg/dL (40-59)
[2025-03-09] MEDS: PARoxetine 20 MG TAB PO SCH (09:15)
[2025-03-09] MEDS: IRON SUCROSE COMPLEX 110 ML IV SCH (14:42)
--- NOTE | 2025-03-09 18:27 | DVH ---
CT HEAD WITHOUT CONTRAST INDICATION: syncope COMPARISON: None TECHNIQUE: CT of the head without intravenous contrast. RADIATION DOSE: CTDIvol: 56.09 mGy, DLP: 965.17 mGy*cm FINDINGS: There is no evidence of acute intracranial hemorrhage, extra-axial collection, mass effect, midline shift, herniation or hydrocephalus. The ventricles, sulci and cisterns are age appropriate. The seth-white differentiation is intact. The visualized paranasal sinuses and mastoid air cells are clear. The surrounding soft tissues and osseous structures are unremarkable. IMPRESSION: 1. No evidence of acute intracranial hemorrhage, mass effect or hydrocephalus.
[2025-03-09] MEDS: MORPHINE SULFATE INJ 2 MG/ml SYRG IV PRN (18:28)
--- NOTE | 2025-03-09 20:02 | DVHPNRES ---
Progress Note Date Seen: Mar 09, 2025 Resident Creating Document: SUZETTE CALIXTO RESIDENT Medical Necessity Reason Pt with a Central, PICC or Fol: No Subjective Review of Systems Shira Bolton is a 64-year old female with past medical history of asthma, COPD, diabetes mellitus, hypertension, seizure disorder who presented to the ED with a chief complaint of chest pain. The patient mentioned having left-sided chest pain at night for the last 2 nights, radiating to the left arm along with shortness of breath. The patient mentioned having multiple syncopal episodes in the last 1 year where she experienced complete blackout. These episodes are associated with nausea and vomiting. Her PCP sent her to the ED after an office EKG showed sinus bradycardia. Past medical history: Asthma, COPD, diabetes mellitus, hypertension, seizure disorder Past surgical history: Cholecystectomy, appendectomy Social & Personal history: Lives in a group living home Smoking, alcohol, drugs :denies Allergies: No known allergies Patient seen and examined at bedside. Patient is alert and oriented to time, place person and responding to all questions. She mentions having light headeness. Eyes: No Pain, No Vision change, No Conjunctivae inflammation, No Eyelid inflammation, No Redness ENT: No Ear pain, No Ear discharge, No Nose pain, No Nose discharge, No Nose congestion, No Mouth pain, No Mouth swelling, No Throat pain, No Throat swelling Cardiovascular: No Chest Pain, No Palpitations, No Orthopnea, No Paroxysmal No Dyspnea, No Edema, No Lt Headedness Respiratory: No Cough, No Dry, No Shortness of breath, No SOB with exertion, No Wheezing, No Hemoptysis, No Pleuritic Pain, No Sputum Gastrointestinal: No Nausea, No Vomiting, No Abdominal Pain, No Diarrhea, No Constipation, No Melena, No Hematochezia Genitourinary: No Dysuria, No Frequency, No Incontinence, No Hematuria, No Retention Objective vital signs Vital Sign Date Time Temp Pulse Resp B/P (MAP) Pulse Ox O2 Delivery O2 Flow Rate FiO2 03/09/25 18:28 63 15 115/68 03/09/25 17:00 98.3 96 98.3 03/09/25 10:00 Room Air* 0 21 Total Intake and Output 03/08/25 03/08/25 03/09/25 15:00 23:00 07:00 Intake Total 0 ml Balance 0 ml medications Current Medications Medications Dose Ordered Sig/Ilene Route Start Time Stop Time Status Last Admin Dose Admin Sodium Chloride 1,000 ml @ 120 mls/hr Q8H20M IV 03/08/25 17:15 03/09/25 09:12 120 MLS/HR Temazepam 15 mg QHSP PRN PO 03/08/25 17:15 Ondansetron HCl 4 mg Q4HP PRN IV 03/08/25 17:15 Docusate Sodium 100 mg BIDPRN PRN PO 03/08/25 17:15 Acetaminophen 650 mg Q6HP PRN PO 03/08/25 17:15 Morphine Sulfate 2 mg Q4HPRN PRN IV 03/08/25 17:15 03/09/25 18:28 2 MG Nitroglycerin 0.4 mg Q5MINP PRN SL 03/08/25 17:15 Morphine Sulfate 2 mg Q30M PRN IV 03/08/25 17:15 Paroxetine HCl 20 mg DAILYPRN PO 03/09/25 10:00 03/09/25 09:15 20 MG Loratadine 10 mg HS PO 03/08/25 22:00 03/08/25 22:14 10 MG Topiramate 50 mg BID PO 03/08/25 22:00 03/09/25 09:15 50 MG Albuterol 2.5 mg Q6HWA PRN NEB 03/08/25 19:15 Lorazepam 1 mg Q5MINP PRN IV 03/08/25 19:15 Iron Sucrose 110 ml @ 110 mls/hr DAILY@1200 IV 03/09/25 12:00 03/13/25 12:59 03/09/25 14:42 110 MLS/HR Ceftriaxone Sodium 50 ml @ 100 mls/hr DAILY@2100 IV 03/09/25 21:00 Examination General Appearance: Cooperative. Well developed. Well nourished. NAD Head Exam: Normal inspection Neck Exam: Normal inspection. Non-tender. Normal alignment Pulmonary/Respiratory: Chest non-tender. Clear bilateral breath sounds, no crackles, no wheezing. Cardiovascular/Chest: Regular rate and rhythm. No murmurs. No JVD. Peripheral Pulses: 2+ Radial (R). 2+ Radial (L). 2+ Pedal (R). 2+ Pedal (L) Abdominal Exam: Normal bowel sounds. Soft. normal abdomen, no visible veins, Nontender. No hepatospenomegaly. No masses Ankle Exam: Negative ankle edema Lower extremities: Negative lower extremity edema Neuro/Mental Status: A&O x4. Coherent. Thoughts/Psych: Normal thought pattern. Appropriate mood and affect. Good judgement and insight Skin Exam: Normal inspection. Normal color. Warm. Dry HANDY: No external hemorrhoids, anal skin tag, normal sphincter tone, empty rectal vault, no bleeding Nurse Deisy was present as pump stitcher during the examination laboratory and microbiology Laboratory Tests 03/09/25 04:03 Test 03/09/25 04:03 Range/Units Serum Glucose 114 H 74-106 mg/dL Microbiology Date/Time Source Procedure Growth Status 03/09/25 06:00 Nose MRSA Screen - Final Complete Labs and/or images reviewed: Labs reviewed by me, Image(s) reviewed by me Problem List/Assessment/Plan Problem List/Assessment/Plan # Acute chest pain, rule out ACS # Recurrent syncopal episodes, rule out arrhythmia # Possible acute systolic/diastolic heart failure -tropes <3 -EKG normal -echo report pending -head CT unremarkable # Acute on chronic microcytic hypochromic anemia Iron deficiency anemia -ferritin 5.7, iron 24, % saturation 6.3, TIBC 382 -hemoglobin 9.8 -monitor H&H -IV iron infusion # Acute complicated UTI -ceftriaxone 1 g IV daily -IV fluids at 1:20 a.m. mL/hour - culture pending # Seizure disorder -continue topiramate 50 mg p.o. b.i.d. PUD prophylaxis: not indicated DVT prophylaxis: lovenox 40mg daily sc Goals of care: Full code, discussed for >23minutes Plan discussed with patient Plan discussed with Dr South Plan discussed with: Patient Date of Service: Mar 09, 2025 Billing Provider: JOSESITO SOUTH MD Common Visit Codes: [id number] INP/OBS CARE(HIGH) SUZETTE CALIXTO RESIDENT Mar 09, 2025 20:02
[2025-03-10] VITALS (12 sets, daily range): BP systolic 0–125; BP diastolic 66–78; PULSE 53–105; RESP 15–18; TEMP 97.7–98.8; O2SAT 95–100
[2025-03-10 05:42] LABS: Hemoglobin 10.1 g/dL (12.2-16.2)
[2025-03-10 05:44] LABS: Hematocrit 31.9 % (36.0-46.0); Mean Corpuscular Hemoglobin 22.3 pg (28.0-32.0); Mean Corpuscular Volume 70.4 fL (80.0-100.0); Nucleated Red Blood Cells % 0.1 %; Potassium 4.3 mmol/L (3.5-5.1); Sodium 143 mmol/L (136-145)
[2025-03-10 05:45] LABS: Chloride 111 mmol/L (98-107)
[2025-03-10 05:46] LABS: Anion Gap 9 (5-15); Calcium 8.9 mg/dL (8.7-10.4); Carbon Dioxide 23 mmol/L (20-31)
[2025-03-10 05:51] LABS: BUN/Creatinine Ratio 11.3 (10.0-20.0); Blood Urea Nitrogen 9 mg/dL (9-23); Glucose 105 mg/dL (74-106)
[2025-03-10] MEDS: ENOXAPARIN SOD 40 MG/0.4 ML SYRINGE SC SCH (10:18)
--- NOTE | 2025-03-10 16:13 | DVHSR ---
APPROVED REPORT EXAM: Two-dimensional and M-mode echocardiogram with Doppler and color Doppler. Blood Pressure: 125/75 mmHg INDICATION Rule out structural heart disease RISK FACTORS Obesity: Height: 5'4", Weight: 207 DIMENSIONS LVDd 4.7 (3.8-5.7cm) LA (2D) 3.8 (1.9-4.0cm) Aortic Root 4.1 (2.0-3.7cm) LVDs 3.4 (2.5-4.0cm) LA (MM) (1.9-4.0cm) Aortic Cusp Exc 1.9 (1.5-2.0cm) EF (%) 50.0 (55-70%) Rt. Atrium 3.8 (1.9-4.0cm) Asc. Aorta cm IVSd 0.9 (0.7-1.1cm) RV (D) 3.3 (1.8-2.4cm) PWd 0.9 (0.7-1.1cm) Mitral Valve Mitral Mitral Stenosis E wave 0.89m/s MV Mean GR. mmHg A wave 0.82m/s MV Peak GR. mmHg E/A ratio 1.1 2D MVA cm2 DECEL Time 176ms PRESS 1/2 Time ms Aortic Valve Aortic Valve Aortic Stenosis V1 1.00m/s AO Mean GR. 3mmHg V2 1.14m/s AO Peak GR. 5mmHg LVOT Diameter 2.0 (1.8-2.4cm) Doppler JOHNATHON 2.75cm2 Pulmonic Valve V2 0.93m/s Other Information Technically limited study due to body habitus. Conclusion NORMAL LV EF AND IS 65% NORMAL VALVES NORMAL RV FUNCTION NO EFFUSION
--- NOTE | 2025-03-10 16:59 | DVHPNRES ---
Progress Note Date Seen: Mar 10, 2025 Resident Creating Document: SUZETTE CALIXTO RESIDENT Medical Necessity Reason Pt with a Central, PICC or Fol: No Subjective Review of Systems Shira Bolton is a 64-year old female with past medical history of asthma, COPD, diabetes mellitus, hypertension, seizure disorder who presented to the ED with a chief complaint of chest pain. The patient mentioned having left-sided chest pain at night for the last 2 nights, radiating to the left arm along with shortness of breath. The patient mentioned having multiple syncopal episodes in the last 1 year where she experienced complete blackout. These episodes are associated with nausea and vomiting. Her PCP sent her to the ED after an office EKG showed sinus bradycardia. Past medical history: Asthma, COPD, diabetes mellitus, hypertension, seizure disorder Past surgical history: Cholecystectomy, appendectomy Social & Personal history: Lives in a group living home Smoking, alcohol, drugs :denies Allergies: No known allergies Patient seen and examined at bedside. Patient is alert and oriented to time, place person and responding to all questions. She mentions having light headedness. Eyes: No Pain, No Vision change, No Conjunctivae inflammation, No Eyelid inflammation, No Redness ENT: No Ear pain, No Ear discharge, No Nose pain, No Nose discharge, No Nose congestion, No Mouth pain, No Mouth swelling, No Throat pain, No Throat swelling Cardiovascular: No Chest Pain, No Palpitations, No Orthopnea, No Paroxysmal No Dyspnea, No Edema, No Lt Headedness Respiratory: No Cough, No Dry, No Shortness of breath, No SOB with exertion, No Wheezing, No Hemoptysis, No Pleuritic Pain, No Sputum Gastrointestinal: No Nausea, No Vomiting, No Abdominal Pain, No Diarrhea, No Constipation, No Melena, No Hematochezia Genitourinary: No Dysuria, No Frequency, No Incontinence, No Hematuria, No Retention 03/10/25- the patient was seen and evaluated at bedside. All labs, charts and telemetry were reviewed. Head CT was unremarkable. Patient stated she feels better and has no dizziness on walking. Orthostatic hypotension was ruled out. Echo showed LVEF of 60-65%. We will continue pain management. Possible discharge for tomorrow was discussed with the patient. Objective vital signs Vital Sign Date Time Temp Pulse Resp B/P (MAP) Pulse Ox O2 Delivery O2 Flow Rate FiO2 03/10/25 12:37 98.0 67 17 111/73 (86) 100 98.0 03/10/25 10:00 Room Air 03/10/25 10:00 0 21 Total Intake and Output 03/09/25 03/09/25 03/10/25 15:00 23:00 07:00 Intake Total 50 ml 620 ml Balance 50 ml 620 ml medications Current Medications Medications Dose Ordered Sig/Ilene Route Start Time Stop Time Status Last Admin Dose Admin Sodium Chloride 1,000 ml @ 120 mls/hr Q8H20M IV 03/08/25 17:15 03/10/25 11:30 120 MLS/HR Temazepam 15 mg QHSP PRN PO 03/08/25 17:15 Ondansetron HCl 4 mg Q4HP PRN IV 03/08/25 17:15 Docusate Sodium 100 mg BIDPRN PRN PO 03/08/25 17:15 Acetaminophen 650 mg Q6HP PRN PO 03/08/25 17:15 Morphine Sulfate 2 mg Q4HPRN PRN IV 03/08/25 17:15 03/09/25 18:28 2 MG Nitroglycerin 0.4 mg Q5MINP PRN SL 03/08/25 17:15 Morphine Sulfate 2 mg Q30M PRN IV 03/08/25 17:15 Paroxetine HCl 20 mg DAILYPRN PO 03/09/25 10:00 03/10/25 10:17 20 MG Loratadine 10 mg HS PO 03/08/25 22:00 03/09/25 21:26 10 MG Topiramate 50 mg BID PO 03/08/25 22:00 03/10/25 10:17 50 MG Albuterol 2.5 mg Q6HWA PRN NEB 03/08/25 19:15 Lorazepam 1 mg Q5MINP PRN IV 03/08/25 19:15 Iron Sucrose 110 ml @ 110 mls/hr DAILY@1200 IV 03/09/25 12:00 03/13/25 12:59 03/10/25 11:34 110 MLS/HR Ceftriaxone Sodium 50 ml @ 100 mls/hr DAILY@2100 IV 03/09/25 21:00 03/09/25 21:25 100 MLS/HR Enoxaparin Sodium 40 mg DAILY SC 03/10/25 10:00 03/10/25 10:18 40 MG Examination General Appearance: Cooperative. Well developed. Well nourished. NAD Head Exam: Normal inspection Neck Exam: Normal inspection. Non-tender. Normal alignment Pulmonary/Respiratory: Chest non-tender. Clear bilateral breath sounds, no crackles, no wheezing. Cardiovascular/Chest: Regular rate and rhythm. No murmurs. No JVD. Peripheral Pulses: 2+ Radial (R). 2+ Radial (L). 2+ Pedal (R). 2+ Pedal (L) Abdominal Exam: Normal bowel sounds. Soft. normal abdomen, no visible veins, Nontender. No hepatosplenomegaly. No masses Ankle Exam: Negative ankle edema Lower extremities: Negative lower extremity edema Neuro/Mental Status: A&O x4. Coherent. Thoughts/Psych: Normal thought pattern. Appropriate mood and affect. Good judgement and insight Skin Exam: Normal inspection. Normal color. Warm. Dry HANDY: No external hemorrhoids, anal skin tag, normal sphincter tone, empty rectal vault, no bleeding Nurse Deisy was present as fire extinguisher charger during the examination laboratory and microbiology Laboratory Tests 03/10/25 05:20 Test 03/10/25 05:20 Range/Units Serum Glucose 105 74-106 mg/dL Microbiology Date/Time Source Procedure Growth Status 03/09/25 09:51 Voided Urine Urine Culture - Preliminary Resulted 03/09/25 08:38 Blood Blood Culture - Preliminary NO GROWTH AFTER 24 HOURS OF INCUBATION. Resulted 03/09/25 06:00 Nose MRSA Screen - Final Complete Labs and/or images reviewed: Labs reviewed by me, Image(s) reviewed by me Problem List/Assessment/Plan Problem List/Assessment/Plan Assessment and plan: # Acute chest pain, ruled out ACS # Recurrent syncopal episodes, rule out arrhythmia # Possible acute systolic/diastolic heart failure, ruled out # orthostatic hypotension ruled out -tropes <3 -EKG normal -echo report- NORMAL LV EF 65% -head CT unremarkable -carotid Doppler- mild atherosclerotic disease in proximal left ICA 50-69% # Acute on chronic microcytic hypochromic anemia Iron deficiency anemia -ferritin 5.7, iron 24, % saturation 6.3, TIBC 382 -hemoglobin 10.1 -monitor H&H -IV iron infusion # Acute complicated UTI -ceftriaxone 1 g IV daily - urine culture prelim- Approximately 50,000 CFU/mL Mixed Gram Positive Nicole # Seizure disorder -continue topiramate 50 mg p.o. b.i.d. PUD prophylaxis: not indicated DVT prophylaxis: Lovenox 40mg daily sc Goals of care discussed for 20 minutes: Full code Plan discussed with patient Plan discussed with Dr Burch I was physically present for the mayers portions of the service provided to patient by THE RESIDENT. I have reviewed the documentation, discussed the case with resident and agree with the resident's documentation except as noted. Also the patient's clinical case was discussed with the patient's nurse. This medical document was created using an electronic medical record system with computerized dictation system. Although this document has been carefully reviewed, there might still be some phonetic and typographical errors. These areas are purely typographical due to imperfections of the software programs, and do not reflect any compromise in the patient's medical care. Late signature. Plan discussed with: Patient, Other (RN) My Orders My Orders Orders - SUZETTE CALIXTO RESIDENT Procedure Category Date Status Time Enoxaparin Sodium PHA 03/10/25 In Process (Lovenox) 10:00 Date of Service: Mar 10, 2025 Billing Provider: YESIKA BURCH MD Common Visit Codes: [id number] INP/OBS CARE(HIGH) Secondary Visit Codes: [id number] CARE PLAN 30 MINUTES (20 minutes) SUZETTE CALIXTO RESIDENT Mar 10, 2025 16:59 JABARI MOHAN RESIDENT Mar 10, 2025 18:17 YESIKA BURCH MD Mar 12, 2025 10:33
[2025-03-11] VITALS (7 sets, daily range): BP systolic 0–112; BP diastolic 56–74; PULSE 60–71; RESP 16–19; TEMP 97.7–98.7; O2SAT 95–98
[2025-03-11 06:47] LABS: Hematocrit 31.4 % (36.0-46.0); Hemoglobin 10.2 g/dL (12.2-16.2); Mean Corpuscular Hemoglobin 22.6 pg (28.0-32.0); Mean Corpuscular Volume 69.6 fL (80.0-100.0); Nucleated Red Blood Cells % 0.1 %
[2025-03-11 06:54] LABS: Anion Gap 10 (5-15); Carbon Dioxide 24 mmol/L (20-31); Potassium 4.0 mmol/L (3.5-5.1); Sodium 143 mmol/L (136-145)
[2025-03-11 06:55] LABS: Calcium 9.2 mg/dL (8.7-10.4)
[2025-03-11 06:59] LABS: Glucose 97 mg/dL (74-106)
[2025-03-11 07:00] LABS: BUN/Creatinine Ratio 12.3 (10.0-20.0); Blood Urea Nitrogen 10 mg/dL (9-23)
[2025-03-11 07:03] LABS: Chloride 109 mmol/L (98-107)
[2025-03-11] MEDS ORDERED: FER325T PO (10:24)
[2025-03-11] MEDS ORDERED: NITR-52 PO (10:24)
--- NOTE | 2025-03-11 15:09 | DVHDSRES ---
Discharge Summary Date of Admission Resident Creating Document: TEO PEARCE RESIDENT Mar 08, 2025 at 17:08 Date of Discharge: Mar 11, 2025 Admitting Diagnosis Acute chest pain Wounds: No wound present on admission. Labs/Diagnostic Data: Laboratory Results Test 03/11/25 05:27 03/09/25 04:03 03/08/25 20:06 03/08/25 20:05 White Blood Count 5.7 10^3/uL (4.4-10.8) Red Blood Count 4.51 10^6/uL (4.0-5.20) Hemoglobin 10.2 g/dL (12.2-16.2) Hematocrit 31.4 % (36.0-46.0) Mean Corpuscular Volume 69.6 fL (80.0-100.0) Mean Corpuscular Hemoglobin 22.6 pg (28.0-32.0) Mean Corpuscular Hemoglobin Concent 32.4 g/dL (32.0-36.0) Red Cell Distribution Width 17.6 % (11.8-14.3) Platelet Count 334 10^3/uL (140-450) Mean Platelet Volume 7.2 fL (6.9-10.8) Neutrophils (%) (Auto) 55.9 % (37.0-80.0) Lymphocytes (%) (Auto) 29.9 % (10.0-50.0) Monocytes (%) (Auto) 9.8 % (0.0-12.0) Eosinophils (%) (Auto) 3.5 % (0.0-7.0) Basophils (%) (Auto) 0.9 % (0.0-2.0) Neutrophils # (Auto) 3.2 10 ^3/uL (1.6-8.6) Lymphocytes # (Auto) 1.7 10 ^3/uL (0.4-5.4) Monocytes # (Auto) 0.6 10 ^3/uL (0-1.3) Eosinophils # (Auto) 0.2 10 ^3/uL (0-0.8) Basophils # (Auto) 0.1 10 ^3/uL (0-0.2) Nucleated Red Blood Cells 0.1 % Sodium Level 143 mmol/L (136-145) Potassium Level 4.0 mmol/L (3.5-5.1) Chloride Level 109 mmol/L (98-107) Carbon Dioxide Level 24 mmol/L (20-31) Anion Gap 10 (5-15) Blood Urea Nitrogen 10 mg/dL (9-23) Creatinine 0.81 mg/dL (0.550-1.02) Glomerular Filtration Rate Calc 82 mL/min (>90) BUN/Creatinine Ratio 12.3 (10.0-20.0) Serum Glucose 97 mg/dL (74-106) Calcium Level 9.2 mg/dL (8.7-10.4) Total Bilirubin 0.3 mg/dL (0.2-1.0) Aspartate Amino Transferase (AST) 21 U/L (13-40) Alanine Aminotransferase (ALT) 15 U/L (7-40) Alkaline Phosphatase 95 U/L (46-116) Total Protein 6.6 g/dL (5.7-8.2) Albumin 3.9 g/dL (3.2-4.8) Triglycerides Level 54 mg/dL (< 150) Cholesterol Level 154 mg/dL (< 200) LDL Cholesterol 80 mg/dL (< 100) HDL Cholesterol 65 mg/dL (40-59) Urine Color Light-yellow (Yellow) Urine Clarity Clear (Clear) Urine pH 6.5 (5.0-9.0) Urine Specific [place] 1.010 (1.001-1.035) Urine Protein Negative (Negative) Urine Ketones Negative (Negative) Urine Blood Negative /uL (Negative) Urine Nitrite Negative (Negative) Urine Bilirubin Negative (Negative) Urine Urobilinogen Normal mg/dL (Negative) Urine Leukocyte Esterase 3+ /uL (Negative) Urine RBC <1 /hpf (0 - 4) Urine Microscopic WBC 16 /HPF (0-5) Urine Squamous Epithelial Cells Few /hpf (<5) Urine Bacteria None seen /hpf (None Seen) Urine Glucose Normal mg/dL (Normal) Urine Opiates Screen Neg (NEGATIVE) Urine Fentanyl Screen Neg (NEGATIVE) Urine Barbiturates Screen Neg (NEGATIVE) Urine Phencyclidine Screen Neg (NEGATIVE) Urine Amphetamines Screen Neg (NEGATIVE) Urine Benzodiazepines Screen Neg (NEGATIVE) Urine Cocaine Screen Neg (NEGATIVE) Urine Cannabinoids Screen Neg (NEGATIVE) Influenza Type A Antigen Negative (Negative) Influenza Type B Antigen Negative (Negative) SARS-CoV-2 Antigen (Rapid) Negative (NEGATIVE) Test 03/08/25 15:54 03/08/25 15:09 Magnesium Level 2.2 mg/dL (1.6-2.6) Troponin I High Sensitivity < 3 ng/L (</=34) C-Reactive Protein High Sensitivity 0.04 mg/dL (<1.0) Erythrocyte Sedimentation Rate 19 mm/hr (0-20) Hemoglobin A1c 6.1 % A1C (<5.7) Iron Level 24 ug/dL (50-170) Total Iron Binding Capacity 382 ug/dL (250-425) Percent Iron Saturation 6.3 % (15-50) Ferritin 5.7 ng/mL (10-291) B-Type Natriuretic Peptide 27.12 pg/mL (0-100) Vitamin B12 Level > 4000 pg/mL (211-911) Folic Acid 18.06 ng/mL (>5.38) Thyroid Stimulating Hormone (TSH) 0.79 uIU/mL (0.55-4.78) Other Laboratory Tests 03/11/25 05:27 Brief Hx & Hospital Course: Connollyesa, is a 64-year-old female patient, with past medical history of asthma, COPD, diabetes mellitus, hypertension and seizure disorder. The patient came to [facility] ED with a chief complaint of 2 days of chest pain 8/10, continue, localized on left side of the chest, pressure-like, radiating to the left arm; associated with shortness of breath. On further questioning, the patient reports having multiple syncopal episodes in the last year where she experienced complete blackout; these episodes are associated with nausea and vomiting.; The patient also reports her PCP sent her to the ED after an office EKG showed sinus bradycardia. In the ED the EKG showed sinus tachycardia. The patient was admitted for further evaluation Past medical history: Asthma, COPD, diabetes mellitus, hypertension, seizure disorder Past surgical history: Cholecystectomy, appendectomy Social & Personal history: Lives in a group living home Smoking, alcohol, drugs :denies Allergies: No known allergies Hospital course: during her hospital admission the patient was evaluated and assessed as follow: 03/10/25- the patient was seen and evaluated at bedside. All labs, charts and telemetry were reviewed. Head CT was unremarkable. Patient stated she feels better and has no dizziness on walking. Orthostatic hypotension was ruled out. Echo showed LVEF of 60-65% with no abnormalities. On 03/11/25, the patient was evaluated and examined at bedside. VS, labs and chart was reviewed. Telemetry screen showed normal sinus rhythm. Urinary and blood cultures are negative, possible contamination on urine culture. ECHO reports EF 65%. Carotid Doppler was negative. The patient reports feeling better, no new complaints today. Due to significant clinical improvement, the patient will be discharge home with oral antibiotics for the UTI: Nitrofurantoin 100mg BID x 5 days. The patient will follow up with PCP in one week. ROS: Constitutional: No dizziness or lightheadedness, also denies: chills, diaphoresis, fatigue, fever, malaise, sweats, weakness, others EENTM: denies: blurred vision, double vision, ear bleeding, ear discharge, ear drainage, ear pain, ear ringing, eye pain. Cardiovascular: denies: chest pain, dizzy spells, diaphoresis, Dyspnea on exertion, edema, irregular heart beat, left arm pain, lightheadedness, palpitations, PND, syncope, others Gastrointestinal: reports: Improvement, no new nausea, vomiting or diarrhea; denies: abdomen distended, abdominal pain, blood streaked bowels, constipated, diarrhea, dysphagia, difficulty swallowing, hematemesis, melena, poor appetite, poor fluid intake, rectal bleeding, rectal pain, others Genitourinary: denies: burning, dysuria, flank pain, frequency, hematuria, incontinence, penile discharge, penile sore, pain, testicle pain, testicle swelling, urgency, others Neurological: reports: No headache; denies: dizziness, fainting, left sided numbness, left sided weakness, numbness, paresthesia, pre-existing deficit, right sided numbness, right sided weakness, seizure, speech problems, tingling, tremors, weakness, others Musculoskeletal: denies: back pain, gout, joint pain, joint swelling, muscle pain, muscle stiffness, neck pain, others Integumetry: denies: bruises, change in color, change in hair/nails, dryness, laceration, lesions, lumps, rash, wounds, others Allergic/Immunocompromised: denies: Difficulty Healing, Frequent Infections, Hives, Itching, others Hematologic/Lymphatic: denies: anemia, blood clots, easy bleeding, easy bruising, swollen glands, others Endocrine: denies: excessive hunger, excessive sweating, excessive thirst, excessive urination, flushing, intolerance to cold, intolerance to heat, unexplained weight gain, unexplained weight loss, others Psychiatric: denies: anxiety, bipolar disorder, depression, hopeless, panic disorder, schizophrenia, sleepless, suicidal, others All Other Systems: Reviewed and Negative Physcial Examination on the day of discharge: General Appearance: Not in acute distress. Cooperative. Well developed. Well nourished. Head Exam: Normal inspection Neck Exam: Normal inspection. Non-tender. Normal alignment Pulmonary/Respiratory: Chest non-tender. Clear bilateral breath sounds, no crackles, no wheezing. Cardiovascular/Chest: Regular rate and rhythm. No murmurs. No JVD. Peripheral Pulses: 2+ Radial (R). 2+ Radial (L). 2+ Pedal (R). 2+ Pedal (L) Abdominal Exam: Normal bowel sounds. Soft. normal abdomen, no visible veins, Nontender. No hepatosplenomegaly. No masses Back: negative CVA. Lower extremities: Negative lower extremity edema Neuro/Mental Status: A&O x3. Coherent. Thoughts/Psych: Normal thought pattern. Appropriate mood and affect. Skin Exam: Normal inspection. Normal color. Warm. Dry Discussed with Dr. Burch I was physically present for the mayers portions of the service provided to patient by THE RESIDENT. I have reviewed the documentation, discussed the case with resident and agree with the resident's documentation except as noted. Also the patient's clinical case was discussed with the patient's nurse. This medical document was created using an electronic medical record system with computerized dictation system. Although this document has been carefully reviewed, there might still be some phonetic and typographical errors. These areas are purely typographical due to imperfections of the software programs, and do not reflect any compromise in the patient's medical care. Late signature. Consults/Reason for consult instructional services librarian: for a walker request. Operations or Procedures PROCEDURE(s): EKG - ELECTROCARDIGRAM ORDER NUMBER(s): [id number], ACCESSION NUMBER(s): [id number] [facility] Test Date: 2025-03-08 Test Time: 17:54:09 Pat Name: SHIRA ASHBY Department: ED Room: [address] [place] [address] Gender: F Warehouse Associate: LEONA : 1960 Requested By: AGUSTIN JACKSON Order Number: [id number] Reading MD: Sushma Jones Measurements Intervals [place] Rate: 55 P: 50 LA: 171 QRS: 61 QRSD: 82 T: 59 QT: 438 QTc: 419 Interpretive Statements Sinus rhythm Electronically Signed On 03-09-2025 15:46:48 PST by Sushma Jones Please click the below link to view image of tracing. DICTATED BY:SUSHMA JONES Sr., MD DICTATED DATE/TIME:03/08/25 9410 PROCEDURE(s): ECIDC - ECHO 2D MODE CARDIAC DOP REASON: rule out structural heart disease ORDER NUMBER(s): [id number], ACCESSION NUMBER(s): [id number] APPROVED REPORT EXAM: Two-dimensional and M-mode echocardiogram with Doppler and color Doppler. Blood Pressure: 125/75 mmHg INDICATION Rule out structural heart disease RISK FACTORS Obesity: Height: 5'4", Weight: 207 DIMENSIONS LVDd 4.7 (3.8-5.7cm) LA (2D) 3.8 (1.9-4.0cm) Aortic Root 4.1 (2.0- 3.7cm) LVDs 3.4 (2.5-4.0cm) LA (MM) (1.9-4.0cm) Aortic Cusp Exc 1.9 (1.5- 2.0cm) EF (%) 50.0 (55-70%) Rt. Atrium 3.8 (1.9-4.0cm) Asc. Aorta cm IVSd 0.9 (0.7-1.1cm) RV (D) 3.3 (1.8-2.4cm) PWd 0.9 (0.7-1.1cm) Mitral Valve Mitral Mitral Stenosis E wave 0.89m/s MV Mean GR. mmHg A wave 0.82m/s MV Peak GR. mmHg E/A ratio 1.1 2D MVA cm2 DECEL Time 176ms PRESS 1/2 Time ms Aortic Valve Aortic Valve Aortic Stenosis V1 1.00m/s AO Mean GR. 3mmHg V2 1.14m/s AO Peak GR. 5mmHg LVOT Diameter 2.0 (1.8-2.4cm) Doppler JOHNATHON 2.75cm2 Pulmonic Valve V2 0.93m/s Other Information Technically limited study due to body habitus. Conclusion NORMAL LV EF AND IS 65% NORMAL VALVES NORMAL RV FUNCTION NO EFFUSION PROCEDURE(s): CARCL - CAROTID DUPLX W COLOR DOP REASON: rule out carotid stenosis ORDER NUMBER(s): [id number], ACCESSION NUMBER(s): [id number] ULTRASOUND CAROTID DUPLEX BILATERAL REASON FOR EXAM: rule out carotid stenosis COMPARISON: None TECHNIQUE: Using real-time freeze-frame technique with a high-frequency small parts transducer, multiple longitudinal and transverse sections were obtained. Simultaneous color flow Doppler imaging was performed. FINDINGS: There is mild calcified plaque at the proximal left internal carotid artery. Waveforms are normal. Flow is laminar throughout. Flow through the vertebral and external carotid arteries is antegrade bilaterally. PEAK SYSTOLIC VELOCITIES (cm/sec): RIGHT: CCA 49 Proximal ICA 66 Mid ICA 100 Distal ICA 89 ECA 53 ICA/CCA ratio 2.0 LEFT: CCA 72 Proximal ICA 128 Mid ICA 98 Distal ICA 104 ECA 38 ICA/CCA ratio 1.8 IMPRESSION: Mild atherosclerotic disease in the proximal left internal carotid artery with estimated luminal narrowing of 50-69%. Measurement of carotid stenosis is based on velocity parameters that correlate the residual internal carotid diameter with that of the more distal vessel in accordance with the [place] Symptomatic Carotid Endarterectomy Trial (NASCET). ATED BY: DARIUS TOLBERT MD DICTATED DATE/TIME: 03/08/252003 PROCEDURE(s): HWOCT - HEAD WITHOUT CONTRAST REASON: syncope ORDER NUMBER(s): [id number], ACCESSION NUMBER(s): [id number] CT HEAD WITHOUT CONTRAST INDICATION: syncope COMPARISON: None TECHNIQUE: CT of the head without intravenous contrast. RADIATION DOSE: CTDIvol: 56.09 mGy, DLP: 965.17 mGy*cm FINDINGS: There is no evidence of acute intracranial hemorrhage, extra-axial collection, mass effect, midline shift, herniation or hydrocephalus. The ventricles, sulci and cisterns are age appropriate. The seth-white differentiation is intact. The visualized paranasal sinuses and mastoid air cells are clear. The surrounding soft tissues and osseous structures are unremarkable. IMPRESSION: 1. No evidence of acute intracranial hemorrhage, mass effect or hydrocephalus. ATED BY: SHARIFA SANTIZO MD DICTATED DATE/TIME: 03/09/25 1825 PROCEDURE(s): CXRP - CHEST PORTABLE REASON: CP ORDER NUMBER(s): [id number], ACCESSION NUMBER(s): [id number] CHEST RADIOGRAPH Indication: CP Technique: Single frontal view of the chest was obtained Comparison: None FINDINGS: Lines and Tubes: None Lungs: No focal consolidation. Pleura: No effusion. No pneumothorax. Cardiomediastinal contours: Unremarkable Bones: No acute osseous abnormality. IMPRESSION: No acute cardiopulmonary disease. ATED BY: JOSETTE WALKER DO DICTATED DATE/TIME: 03/08/25 1517 Condition at Discharge: Stable Final Diagnosis/Problems List #Acute chest pain; most likely musculoskeletal; ACS ruled out #Acute complicated UTI, acute cystitis without hematuria #Acute recurrent syncopal episodes; most likely vasovagal #Acute systolic/diastolic heart failure; ruled out #Orthostatic hypotension; ruled out #Acute on chronic microcytic hypochromic anemia #Acute on chronic iron deficiency anemia #Chronic Seizure disorder Discharge Disposition: Home SNF Discharge Will this Physician continue t: No Discharge Instruct/Medications Diet: Cardiac 2g Na,low cholest Activity: No Restrictions, As Tolerated Follow Up/Referral: F/U with PCP in 1 week F/U with cardiology in 1 week Medications: As per EMR Scheduled Aspirin (Aspir-81), 1 TAB PO DAILY, (Reported) Esomeprazole Magnesium (Esomeprazole Magnesium Dr), 1 CAP PO DAILYPRN, (Reported) Ferrous Sulfate (Ferrous Sulfate), 325 MG PO DAILY Nitrofurantoin (Nitrofurantoin), 1 CAP PO BID Paroxetine Hydrochloride (Paroxetine Hydrochloride), 1 TAB PO DAILYPRN, (Reported) Scheduled PRN Albuterol Sulfate (Ventolin Mdi), 90 MCG IN Q6HP PRN for SHORTNESS OF BREATH, (Reported) Hydrocodone-Acetaminophen (Hydrocodone Bitartrate/AC 5-325 mg), 1 TAB PO Q6HR PRN Miscellaneous Medications Loratadine (Loratadine), 10 MG PO, (Reported) Topiramate (Topiramate), 50 MG PO, (Reported) Discontinued Medications Albuterol Sulfate (Albuterol Sulfate Hfa), 108 MCG IN, (Reported) Levofloxacin (Levaquin), 500 MG PO DAILY Metronidazole (Flagyl), 500 MG PO TID Discharge Statement: "Patient was advised to return to the ER or call 911 if any headaches, dizziness, shortness of breath, chest pain, abdominal pain, bleeding, fevers, or worsening of medical condition. Patient was counseled about treatment plan, medications, possible side effects, patientverbalized understanding. All questions were answered to the best of my ability. This discharge took greater then 30 minutes in planning, reviewing documentation, counseling the patient, and discussing with other team members." Discharge Care Plan Instructions Take Rx medications, Notify MD of any issues, Keep list of meds w/ you, Do not drink ETOH/smoke, Call 911 in an emergency, F/U w/ PCP ASSESSMENT ASSESSMENT Assessment #Acute complicated UTI, possible acute cystitis. #Acute recurrent syncopal episodes, possible due to paroxysmal arrhythmia #Possible acute systolic/diastolic heart failure #Possible orthostatic hypotension #Acute on chronic microcytic hypochromic anemia #Acute on chronic iron deficiency anemia #Chronic Seizure disorder #Acute chest pain, possible ACS, ruled out Goals of care: Full code, discussed for >35 minutes PCP: Patient does not recall name at this time. Code Status: Full code. Plan discussed with Dr Burch Plan discussed with: Patient. The patient agress with the discharge plan. Date of Service: Mar 11, 2025 Billing Provider: YESIKA BURCH MD Common Visit Codes: 11795-VGF/OBS DISCH DAY >30min TEO PEARCE Mar 11, 2025 15:09 YESIKA BURCH MD Mar 12, 2025 11:27
--- NOTE | 2025-03-13 07:23 | ECG ---
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
--- NOTE | 2025-03-13 07:23 | ECG ---
[facility] Test Date: 2025-03-08 Test Time: 15:39:19 Pat Name: TONE ASHBY Department: ED Room: 0248T A Gender: F Rental Sales Representative: LEONA : 1960 Requested By: SUZETTE CALIXTO Order Number: [id number] Reading MD: Bony Sandoval Measurements Intervals [place] Rate: 51 P: 44 [place]: 167 QRS: 62 QRSD: 86 T: 60 QT: 460 QTc: 424 Interpretive Statements Sinus rhythm Electronically Signed On 03-13-2025 17:40:33 PST by Bony Sandoval Please click the below link to view image of tracing.
== END 2025-03-11 13:33 | disposition home or self-care (01) | DRG 313 ==
LOC: ER 14:24 → EDBD 14:24 → OVERFLOW 17:08 → TELE-EAST 03-09 19:07
PROVIDERS: ADMIT Internal Medicine; ATTEND Internal Medicine
DX: R07.9 Chest pain, unspecified (principal); D50.9 Iron deficiency anemia, unspecified; E11.9 Type 2 diabetes mellitus without complications; E66.9 Obesity, unspecified; F41.9 Anxiety disorder, unspecified; N30.00 Acute cystitis without hematuria; G40.909 Epilepsy, unspecified, not intractable, without status epilepticus; I10 Essential (primary) hypertension; J44.89 Other specified chronic obstructive pulmonary disease; K76.0 Fatty (change of) liver, not elsewhere classified; G47.00 Insomnia, unspecified; K21.9 Gastro-esophageal reflux disease without esophagitis; K44.9 Diaphragmatic hernia without obstruction or gangrene; K59.00 Constipation, unspecified; Z20.822 Contact with and (suspected) exposure to COVID-19; R55 Syncope and collapse; Z90.49 Acquired absence of other specified parts of digestive tract; Z68.34 Body mass index [BMI] 34.0-34.9, adult; Z95.0 Presence of cardiac pacemaker; Z91.199 Patient's noncompliance with other medical treatment and regimen due to unspecified reason
CPT/HCPCS: 36415; 70450; 71045; 80048; 80053; 80061; 80307; 81001; 82607; 82728; 82746; 83036; 83540; 83550; 83735; 83880; 84443; 84484; 85025; 85652; 86141; 87040; 87081; 87086; 87426; 87804; 93005; 93306; 93886; 97110; 97116; 97163; 97530; 99291; G0378; J1756